=== PATIENT | female | born 1980 | race Caucasian/White ===

== ENCOUNTER → 2020-03-17 11:00 | Outpatient (BNVA) | payer OTHER, SELFPAY | PROVIDERS: PCP Hospitalist; Visit Provider Obstetrics & Gynecology | DX: Z76.89 Persons encountering health services in other specified circumstances (principal) ==

== ENCOUNTER → 2020-04-05 08:53 | Outpatient (BNVA) | payer OTHER, SELFPAY | PROVIDERS: PCP Hospitalist; Visit Provider Surgery | DX: Z76.89 Persons encountering health services in other specified circumstances (principal) ==

== ENCOUNTER → 2020-05-24 13:07 | Outpatient (BNVA) | payer OTHER, SELFPAY | PROVIDERS: PCP Hospitalist; Visit Provider Surgery ==

== ENCOUNTER 2020-07-14 10:16 | Outpatient (REF) | payer OTHER, SELFPAY ==
--- NOTE | ~2020-07-14 | MR_ITS ---
EXAMINATION: MR BREAST WITHOUT AND WITH CONTRAST, BILATERAL CLINICAL INFORMATION: 40-year-old for high risk screening family history history of carrier of genetic disease. COMPARISON: None. TECHNIQUE: Imaging was performed with a dedicated breast coil. Prior to the administration of contrast, bilateral axial T1 and bilateral axial T2 weighted sequences were obtained. After the uneventful administration of?7 mL of Gadavist, dynamic contrast-enhanced VIBRANT series through the breasts in the axial plane were performed. Subtracted images were performed and reviewed. A delayed sagittal sequence through both breasts was acquired. Additionally, CAD post-processing, including maximum intensity projections, 3-D reconstructions and kinetic analysis, were performed an independent workstation and reviewed by the interpreting radiologist is a portion of this exam. FINDINGS: The patient's fibroglandular tissue demonstrates moderate background enhancement. There is moderate background enhancement. LEFT BREAST: There are multiple enhancing foci throughout the breast parenchyma demonstrating subthreshold-type kinetics. There are no areas of mass or non-mass enhancement suspicious of malignancy and no secondary signs of malignancy such as nipple retraction or ductal enhancement. Multiple oval T2 bright masses are noted throughout the breast most likely representing cysts. There are no additional findings on kinetic curve analysis. RIGHT BREAST: Similar to the contralateral breast, there are scattered enhancing foci demonstrating subthreshold-type kinetics. There is an oval T2 bright mass in the 3-4 o'clock position, 6.5 cm from the nipple, measuring 1.4 x 0.8 cm. This has T2 dark septation which demonstrates plateau and progressive-type kinetics. This may represent a complex cystic and solid mass (sequence #5, image 25/36). There are no other areas of mass or non-mass enhancement suspicious of malignancy, and no secondary signs of malignancy. There are no additional findings on kinetic curve analysis. There is no suspicious internal mammary chain or axillary adenopathy. Limited views of the chest and abdomen are unremarkable. MR/MR breast BI wo/w con IMPRESSION: 1. Right breast with complex T2 bright mass 3-4 o'clock position, 6.5 cm from the nipple, measuring 1.4 x 0.8 cm. 2. Moderate background enhancement with enhancing foci. No suspicious findings. ASSESSMENT: LEFT BREAST: BI-RADS 2, benign. RIGHT BREAST: BI-RADS 4, suspicious. RECOMMENDATIONS: Focused ultrasound of the right breast to further characterize the mass in the 3-4 o'clock position, 6.5 cm from the nipple.
== END 2020-07-14 10:17 | disposition home or self-care (01) ==
LOC: HO.MRI 10:16
PROVIDERS: Visit Provider Surgery
DX: Z84.81 Family history of carrier of genetic disease (principal)
CPT/HCPCS: 77049; A9585

== ENCOUNTER 2020-08-01 10:52 | Outpatient (REF) | payer OTHER, SELFPAY ==
--- NOTE | ~2020-08-01 | MM_ITS ---
EXAMINATION: MM DIAGNOSTIC DIGITAL BREAST TOMOSYNTHESIS, BILATERAL US DIAGNOSTIC ULTRASOUND BREAST, RIGHT CLINICAL INFORMATION: 40-year-old with family history of carrier of genetic disease (Z84.81). Tyrer-Cuzick lifetime risk score is 24%. Recent high risk screening breast MRI notes possible complex cystic and solid mass posterior 8:00 right breast for targeted imaging. No prior mammography or breast ultrasound. COMPARISON: High risk screening breast MRI for 12/25/2020. Findings discussed with interpreting radiologist. TECHNIQUE: Digital breast tomosynthesis is performed in both the craniocaudal and mediolateral oblique views along with computer-aided detection (CAD). Synthesized 2D images are generated from the tomosynthesis. Additional exaggerated left CC view is provided. Ultrasound right breast is targeted to the outer quadrants. Grayscale imaging and color Doppler are performed without and with harmonics. FINDINGS: There are scattered areas of fibroglandular density (ACR BI-RADS breast composition Category b). There is no architectural abnormality. No abnormal calcifications. The bilateral axilla and skin contours are unremarkable. Left breast has circumscribed nodules anterior and mid central medial breast corresponding to cysts on MRI. Right breast has grouped nodularity posterior 8:30 position 6 cm from nipple, overall size 1.7 x 1.6 cm. There is interspersed fatty tissue composition. No architectural abnormality or associated calcification. This corresponds to the finding on recent MRI. Ultrasound right breast demonstrates grouped hypoechoic avascular nodularity 8:00 position 6 cm from nipple with overall size 1.6 cm across. The largest nodule is circumscribed 0.6 cm with low-level internal echoes and increased through transmission of sound. There is interspersed fibroglandular tissue, likely responsible for the enhancement on recent MR. There is no solid mass or architectural abnormality. Results are discussed with the patient at time of visit. The finding posterior outer right breast on recent MR appears to represent grouped mildly complicated avascular cysts with interspersed fibroglandular tissue. Management plan is for diagnostic right mammography and targeted right breast ultrasound in 6 months. Patient should continue with annual bilateral mammography and considered follow-up MR in 6-12 months. MM/MM tomosynthesis diagnostic BI IMPRESSION: 1. Right: Grouped mildly complicated cysts posterior outer breast corresponding to finding on recent breast MR. 2. Left: A few small cysts corresponding to recent MR. ASSESSMENT: BI-RADS 3: Probably Benign RECOMMENDATION: 1. Diagnostic right mammography and right breast ultrasound in 6 months. 2. Consider follow up breast MR in 6-12 months. This patient's information was entered into a reminder system with a target due date for their next mammogram.
== END 2020-08-01 10:53 | disposition home or self-care (01) ==
LOC: HO.MAMMO 10:52
PROVIDERS: PCP Hospitalist; Visit Provider Surgery
DX: N63.13 Unspecified lump in the right breast, lower outer quadrant (principal); Z84.81 Family history of carrier of genetic disease
CPT/HCPCS: 76642; 77062; 77066

== ENCOUNTER 2020-08-11 09:53 | Outpatient (REF) | payer OTHER, SELFPAY ==
--- NOTE | ~2020-08-11 | MM_ITS ---
EXAMINATION: ULTRASOUND GUIDED CORE BIOPSY BREAST, RIGHT POST PROCEDURE DIGITAL MAMMOGRAM, RIGHT CLINICAL INFORMATION: Heterogeneous lesion posterior outer right breast on high risk screening MRI. COMPARISON: High risk screening MRI 07/14/2020, diagnostic digital breast tomosynthesis and targeted right breast ultrasound 08/01/2020. FINDINGS: Proper informed consent is obtained from the patient after discussion of the procedure, potential risks and complications, and alternatives. Patient was given an opportunity for questions. The patient appeared to understand. The patient consented to the procedure and signed the consent form. GUIDANCE: Ultrasound-guided; aseptic technique. LESION: Grouped nodularity posterior 8:30 o'clock position under 2 cm with interspersed fatty stromal tissue. Diagnostic considerations include focal fibrocystic changes, focal fibrosis, PASH, other. APPROACH: Lateral medial. ANESTHESIA: 17 mL 1% lidocaine. DERMATOTOMY: Single skin jostin dermatotomy performed. NEEDLE: 14-gauge Achieve core biopsy device with 13.5-gauge co-axial guide needle. CORES: 8. CLIP: HydroMARK; shape: open coil. POST PROCEDURE UNILATERAL DIGITAL MAMMOGRAM: The post biopsy mammogram is performed in separate room using separate digital mammography equipment from the biopsy procedure. CC and ML views are obtained. There are scattered areas of fibroglandular density (breast composition category: b). The clip marker is in position and corresponds to the mammographic lesion. No gross hematoma. The patient tolerated the procedure well. No immediate complications. Home instructions reviewed with the patient. Final pathology results are pending. MM/MM diagnostic mammo unilat RT IMPRESSION: 1. Status post ultrasound-guided core biopsy right breast. 2. Clip placed: HydroMARK; shape: open coil. 3. Pathology pending. An addendum report will be issued.
== END 2020-08-11 09:54 | disposition home or self-care (01) ==
LOC: HO.MAMMO 09:53
PROVIDERS: PCP Hospitalist; Visit Provider Surgery
DX: N63.13 Unspecified lump in the right breast, lower outer quadrant (principal); Z84.81 Family history of carrier of genetic disease
CPT/HCPCS: 19083; 77065; 88305

== ENCOUNTER → 2021-01-05 09:27 | Outpatient (BNVA) | payer BC, SELFPAY | PROVIDERS: PCP Hospitalist; Visit Provider Surgery ==

== ENCOUNTER 2021-01-26 12:12 | Outpatient (REF) | payer BC, SELFPAY ==
--- NOTE | ~2021-01-26 | MM_ITS ---
EXAMINATION: MM DIAGNOSTIC DIGITAL BREAST TOMOSYNTHESIS, RIGHT CLINICAL INFORMATION: Short interval six-month follow-up status post benign biopsy right breast (benign breast tissue with florid usual ductal hyperplasia, fibroelastotic stromal and fibrocystic changes). Family history genetic disease (Z84.81). The lifetime risk of breast cancer based on the Tyrer-Cuzick Model is 24%. COMPARISON: MRI breasts 07/14/2020, mammography 08/01/2020 and 08/11/2020. Ultrasound right breast 08/01/2020, ultrasound-guided core biopsy right breast 08/11/2020. TECHNIQUE: Digital breast tomosynthesis is performed in both the craniocaudal and mediolateral oblique views along with computer-aided detection (CAD). Synthesized 2D images are generated from the tomosynthesis. Additional exaggerated spot CC and spot MLO views are obtained. FINDINGS: There are scattered areas of fibroglandular density (ACR BI-RADS breast composition Category b). Breast tissue composition borders on heterogeneously dense. There are scattered fibroglandular asymmetries similar to prior studies. No developing density. Biopsy clip marker again noted posterior 9:00 position. No developing density. No significant calcifications. The skin contours are smooth. Results are discussed with the patient at time of visit. MM/MM tomosynthesis diagnostic RT IMPRESSION: No mammographic evidence of malignancy. ASSESSMENT: BI-RADS 2: Benign RECOMMENDATION: 1. Routine annual mammography screening. 2. The lifetime risk of breast cancer based on the Tyrer-Cuzick Model is 24%. Additional annual adjunct screening with breast MRI may be of benefit in women with a risk score of 20% or greater. This patient's information was entered into a reminder system with a target due date for their next mammogram.
== END 2021-01-26 12:13 | disposition home or self-care (01) ==
LOC: HO.MAMMO 12:12
PROVIDERS: PCP Hospitalist; Visit Provider Surgery
DX: N63.13 Unspecified lump in the right breast, lower outer quadrant (principal); Z84.81 Family history of carrier of genetic disease
CPT/HCPCS: 77061; 77065

== ENCOUNTER 2021-04-18 10:38 | Outpatient (REF) | payer BC, SELFPAY ==
[2021-04-21 16:31] LABS: HPV mRNA E6/E7 rflx Not Detected (Not Detected)
== END 2021-04-18 10:39 | disposition home or self-care (01) ==
LOC: HO.LAB 10:38
PROVIDERS: PCP Hospitalist; Visit Provider Advanced Practice Midwife
DX: Z01.419 Encounter for gynecological examination (general) (routine) without abnormal findings (principal)
CPT/HCPCS: 87624; 88142

== ENCOUNTER 2021-06-12 16:18 | Outpatient (REF) | payer BC, SELFPAY ==
[2021-06-12 18:15] LABS: Appearance Urine CLEAR; Color Urine STRAW; Glucose Urine UA NEG (NEG); Leukocyte Esterase Urine TRACE (NEG); Nitrite Urine NEG (NEG); PH 6.5 (5.0-8.0); Specific Gravity - Urine <= 1.005 (1.005-1.025); UACC Culture Trigger YES; Urine Blood NEG (NEG); Urine Ketones NEG (NEG); Urine Protein NEG (NEG-TRACE)
[2021-06-12 18:26] LABS: Bacteria Urine 3+ /LPF; RBC Urine 0 /HPF (0); Squamous Epithelial Cell Urine 3+ /LPF
== END 2021-06-12 16:19 | disposition home or self-care (01) ==
LOC: HO.LAB 16:18
PROVIDERS: Visit Provider Advanced Practice Midwife
DX: R30.0 Dysuria (principal)
CPT/HCPCS: 81001; 87086

== ENCOUNTER → 2021-08-23 09:12 | Outpatient (BNVA) | payer BC, SELFPAY | PROVIDERS: PCP Internal Medicine; Visit Provider Surgery | DX: Z13.89 Encounter for screening for other disorder (principal) ==

== ENCOUNTER 2021-09-19 15:52 | Outpatient (REF) | payer BC, SELFPAY ==
--- NOTE | ~2021-09-19 | MM_ITS ---
EXAMINATION: MM SCREENING DIGITAL BREAST TOMOSYNTHESIS, BILATERAL CLINICAL INFORMATION: Screening. Family history genetic disease (Z84.81). Benign right breast biopsy 08/11/2020 (benign breast tissue with florid usual ductal hyperplasia, fibroelastotic stromal and fibrocystic changes). The lifetime risk of breast cancer based on the Tyrer-Cuzick Model is 19%. COMPARISON: Mammography: 01/26/2021, 08/11/2020, 08/01/2020; ultrasound core biopsy 08/11/2020, ultrasound right breast 08/01/2020, MR bilateral breasts 07/14/2020. TECHNIQUE: Digital breast tomosynthesis is performed in both the craniocaudal and mediolateral oblique views along with computer-aided detection (CAD). Synthesized 2D images are generated from the tomosynthesis. FINDINGS: The breasts are heterogeneously dense, which may obscure small masses (ACR BI-RADS breast composition Category c). Right breast has biopsy clip marker posterior 9:00 position right breast. Parenchymal pattern is similar to prior study. No developing density or interval architectural abnormality or abnormal calcifications. Left breast has chronic smooth nodularity consistent with cysts on MRI subareolar and central inner breast. The central medial cyst is slightly larger, measuring 1.4 x 1.3 cm, previously 1.0 x 0.8 cm. Subareolar cyst is borderline decreased. No interval developing density or architectural abnormality or abnormal calcifications. The bilateral axilla and skin contours are unremarkable. No significant changes. MM/MM tomosynthesis screening BI IMPRESSION: -No mammographic evidence of malignancy. ASSESSMENT: BI-RADS 2: Benign RECOMMENDATION: 1. Routine annual mammography screening. 2. Additional adjunct breast MRI as clinical risk factors warrant. This patient's information was entered into a reminder system with a target due date for their next mammogram.
== END 2021-09-19 15:53 | disposition home or self-care (01) ==
LOC: HO.MAMMO 15:52
PROVIDERS: Visit Provider Surgery
DX: Z12.31 Encounter for screening mammogram for malignant neoplasm of breast (principal)
CPT/HCPCS: 77063; 77067

== ENCOUNTER → 2022-04-19 09:05 | Outpatient (BNVA) | payer OTHER, SELFPAY | PROVIDERS: PCP Internal Medicine; Visit Provider Surgery | DX: Z91.89 Other specified personal risk factors, not elsewhere classified (principal); Z84.81 Family history of carrier of genetic disease ==

== ENCOUNTER 2022-06-10 09:26 | Outpatient (REF) | payer OTHER, SELFPAY ==
--- NOTE | ~2022-06-10 | MR_ITS ---
EXAMINATION: MR BREAST WITHOUT AND WITH CONTRAST, BILATERAL CLINICAL INFORMATION: High risk screening. Family history of genetic disease. Paternal grandmother with history of breast cancer. Previous benign right breast biopsy. COMPARISON: Portions of previous MRI 07/14/2020. Mammography (nondiagnostic monitor review): 09/19/2021. TECHNIQUE: A 1.5 T system and a dedicated breast coil. T1-weighted sequences without fat-saturation were obtained prior to the administration of contrast. Fat-saturated T1 and T2-weighted sequences were also acquired. The patient received 8 mL of IV gadolinium-based contrast, Gadavist. Multiple sequential dynamic T1-weighted sequences were obtained through both breasts with fat-saturation. Subtracted images were reviewed. CAD postprocessing with 3-D reconstructions, maximum intensity projections and kinetic analysis was performed by the interpreting radiologist at an independent workstation and reviewed as a portion of this exam. FINDINGS: Amount of Remaining Fibroglandular Signal: There is heterogeneous fibroglandular tissue, which may obscure small masses(ACR BI-RADS breast composition category C).* Background Parenchymal Enhancement: Marked Symmetry of Background Enhancement: Symmetric RIGHT BREAST: There are no suspicious findings. Masses: There is a 0.5 cm low level enhancing focus in the 11 o'clock position 2 cm from the right nipple (series 7, image 56). This appears unchanged when compared to 07/14/2020 (series 102, image 66). There is no suspicious abnormality in this area on mammography. No new suspicious right breast finding. Non-mass Enhancement: Extensive heterogeneous non-mass background enhancement could obscure a significant abnormality and limits the exam. Focus: Multiple nonspecific enhancing foci. Non-enhancing Findings: Associated findings: There are no suspicious associated findings. There is no suspicious finding in the area of susceptibility artifact from previous tissue marker placement in the outer right breast. There are multiple cysts present. Kinetic Curve Assessment: Initial Phase: There are no suspicious areas of color signal. Delayed Phase: There are no areas of washout kinetics. LEFT BREAST: There are no suspicious findings. Masses: There are no suspicious enhancing masses. Non-mass Enhancement: Extensive heterogeneous non-mass background enhancement could obscure a significant abnormality and limits the exam. Focus: Scattered nonspecific enhancing foci. Non-enhancing Findings: Associated Findings: There are no suspicious associated findings. There are multiple cysts present. Kinetic Curve Assessment: Initial Phase: There are no areas of suspicious color signal. Delayed Phase: There are no areas of washout kinetics. The axillary lymph nodes are morphologically normal. No suspicious internal mammary lymph nodes are seen. No suspicious abnormality in the visualized portions of chest or abdomen. MR/MR breast BI wo/w con IMPRESSION: Extensive heterogeneous non-mass background enhancement could obscure a significant abnormality. No convincing evidence of malignancy or suspicious interval change. ASSESSMENT: Right Breast: ACR BI-RADS 2: Benign finding. Left Breast: ACR BI-RADS 2: Benign finding. RECOMMENDATIONS: Continue screening.
== END 2022-06-10 09:27 | disposition home or self-care (01) ==
LOC: HO.MRI 09:26
PROVIDERS: PCP Internal Medicine; Visit Provider Surgery
DX: Z91.89 Other specified personal risk factors, not elsewhere classified (principal); Z84.81 Family history of carrier of genetic disease; Z80.3 Family history of malignant neoplasm of breast
CPT/HCPCS: 77049; A9585

== ENCOUNTER → 2022-08-14 08:47 | Outpatient (BNVA) | payer OTHER, SELFPAY | PROVIDERS: PCP Internal Medicine; Visit Provider Advanced Practice Midwife ==

== ENCOUNTER 2022-10-18 09:15 | Outpatient (AMB) | payer OTHER, SELFPAY ==
--- NOTE | 2022-10-18 09:18 | A.OFFVIS_ITS ---
Intake Vital Signs 10/18/22 09:24 Height 5 ft 4 in Weight 173 lb 4 oz BMI 29.7 BP 123/69 Blood Pressure Location Lt brachial Position Sitting Pulse 62 Intake Visit Reasons: 6 month breast exam Intake Note: Patient is seen in office for 6 month follow up visit, breast exam. 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 She has a family history of BRCA2 mutation in her father. He was diagnosed with metastatic prostate cancer and subsequent underwent radiation therapy to the spine. He also has a history of metastatic melanoma. Paternal grandmother was diagnosed with breast cancer the age of 65 and maternal grandmother was treated for lung cancer. Patient underwent genetic testing which was negative for BRCA mutation however 2 variants of unknown significance were identified. Her Tyrer-zick remaining lifetime risk of breast cancer was calculated at 34.8% placing her high risk for breast cancer. She was started on the high risk protocol including twice yearly clinical breast examinations, yearly mammogram alternating in 6 months with yearly breast MRIs. Her last mammogram performed on 09/19/2021 revealed no suspicious findings (BI-RADS 2). Last breast MRI performed on 06/10/2022 revealed extensive heterogeneous non mass background enhancement which could obscure a significant abnormality. No convincing evidence of malignancy or suspicious interval change (BI-RADS 2 bilaterally). She denies any new breast symptoms. She is now due for her yearly mammogram. [facility] Medical History BRCA negative Surgical History History of loop electrical excision procedure (LEEP) History of tonsillectomy Family History Father BRCA gene mutation positive in male Prostate cancer Melanoma Mother TTP (thrombotic thrombocytopenic purpura) Stroke Paternal Grandmother Breast cancer Maternal Uncle Lung cancer Social History Alcohol intake: current Alcohol intake frequency: a few times a month Current occupational status: employed Current occupation: [employer] Sexual orientation: Straight/Heterosexual Gender identity: Female Female Reproductive History Menstrual Age of Menarche: 11 Review of Systems Const All systems reviewed & are unremarkable except as noted in HPI and below Denies chills, Denies fever(s), Denies headache(s) and Denies poor appetite ENT Denies dizziness and Denies headache(s) Card Denies chest pain, Denies rapid heart rate, Denies palpitations and Denies slow heart rate Resp Denies chest congestion, Denies cough, Denies pain on inspiration and Denies wheezing GI Denies abdominal pain, Denies bloating, Denies change in stool character, Denies constipation, Denies diarrhea, Denies nausea, Denies vomiting and Denies hematemesis Musc Denies back pain, Denies arthralgias, Denies joint swelling and Denies numbness Skin/Breast Denies change in pigmentation, Denies erythema and Denies rash Neuro Denies dizziness, Denies headache(s) and Denies numbness Psych Denies anxiety and Denies depression Endo Denies palpitations Kaz/Lymph Denies easy bleeding, Denies easy bruising and Denies lymphadenopathy Aller/Immun Denies wheezing Physical Exam Const General: no acute distress and well developed Nutritional Appearance: well nourished Orientation/consciousness: patient oriented x3 Limitations: no limitations HEENT Head: Yes normocephalic and Yes atraumatic Eyes Sclerae: sclerae normal EOM: EOMs intact bilaterally Neck Neck: Yes no lymphadenopathy Chest Other: Left breast: No skin change, no nipple retraction, no nipple discharge, no palpable mass, no enlarged lymph nodes. Right breast: No skin change, no nipple retraction, no nipple discharge, no palpable mass, no enlarged lymph nodes Resp Effort & Inspection: normal respiratory effort and no cough Skin Other: Warm and dry, no rash General skin exam: no rashes or lesions noted Neuro General: patient oriented x3 Extrem General: Yes no clubbing, cyanosis or edema Assessment & Plan Assessment & Plan (1) At high risk for breast cancer: Code(s): Z91.89 - Other specified personal risk factors, not elsewhere classified (2) Family history of BRCA gene mutation: Code(s): Z84.81 - Family history of carrier of genetic disease Plan: 42-year-old female patient with strong family history of breast cancer found to have an elevated Tyrer-zi risk a 34.8% lifetime remaining risk of breast cancer. She underwent an ultrasound-guided core biopsy which revealed benign breast tissue. She underwent screening mammogram on 09/19/2021 which revealed no mammographic evidence of malignancy (BI-RADS 2). Breast MRI of 06/10/2022 revealed no convincing evidence of malignancy in either breast (BI-RADS 2). She is now due for her yearly mammogram. Examination today revealed no suspicious findings in either breast. She should follow up in 6 months for routine breast examination, sooner p.r.n.. Orders: Orders MM screening mammo BI Today Z84.81 - Family history of carrier of genetic disease, Z91.89 - Other specified personal risk factors, not elsewhere cla ssified Coding Level of Care Code Est Pt Level 3 (66563) Diagnoses At high risk for breast cancer Z91.89 Family history of BRCA gene mutation Z84.81
[2022-10-18 09:24] VITALS: BP 123/69; PULSE 62; BMI 29.7
== END 2022-10-18 09:38 | disposition home or self-care (01) ==
PROVIDERS: PCP Internal Medicine; Visit Provider Surgery
DX: Z15.01 Genetic susceptibility to malignant neoplasm of breast (principal); Z84.81 Family history of carrier of genetic disease
CPT/HCPCS: 99213

== ENCOUNTER → 2022-10-18 09:15 | Outpatient (BNVA) | payer OTHER, SELFPAY | PROVIDERS: PCP Internal Medicine; Visit Provider Surgery | DX: Z91.89 Other specified personal risk factors, not elsewhere classified (principal); Z84.81 Family history of carrier of genetic disease ==

== ENCOUNTER 2022-12-16 09:37 | Outpatient (REF) | payer OTHER, SELFPAY ==
--- NOTE | ~2022-12-16 | MM_ITS ---
EXAMINATION: MM SCREENING DIGITAL BREAST TOMOSYNTHESIS, BILATERAL CLINICAL INFORMATION: Screening. Asymptomatic. The patient had a recent breast MRI on 06/10/2022 which showed no focal findings. This was performed for high risk screening. COMPARISON: Mammography: This study is compared with prior exams dating back to 2020. TECHNIQUE: Digital breast tomosynthesis is performed in both the craniocaudal and mediolateral oblique views along with computer-aided detection (CAD). Synthesized 2D images are generated from the tomosynthesis. FINDINGS: There are scattered areas of fibroglandular density (ACR BI-RADS breast composition Category b). There are no significant masses, abnormal calcifications, or other abnormalities. There is a tissue marker in the lateral aspect of the right breast from prior benign percutaneous biopsy. There have been no significant interval changes with the prior studies. MM/MM tomosynthesis screening BI IMPRESSION: No mammographic evidence of malignancy. ASSESSMENT: BI-RADS BI-RADS 2 - Benign Findings RECOMMENDATION: Routine annual mammography screening. 1 year F/U This examination should not preclude the clinical evaluation of a suspicious palpable abnormality. This patient's information was entered into a reminder system with a target due date for their next mammogram.
== END 2022-12-16 09:38 | disposition home or self-care (01) ==
LOC: HO.MAMMO 09:37
PROVIDERS: PCP Internal Medicine; Referring Provider Advanced Practice Midwife; Visit Provider Surgery
DX: Z12.31 Encounter for screening mammogram for malignant neoplasm of breast (principal)
CPT/HCPCS: 77063; 77067

== ENCOUNTER → 2022-12-16 09:45 | Outpatient (BNV) | payer OTHER, SELFPAY | PROVIDERS: PCP Internal Medicine; Referring Provider Advanced Practice Midwife; Visit Provider Radiology Diagnostic Radiology | DX: Z12.31 Encounter for screening mammogram for malignant neoplasm of breast (principal) | CPT/HCPCS: 77063; 77067 ==

== ENCOUNTER 2022-12-31 13:29 | Outpatient (AMB) | payer OTHER, SELFPAY ==
[2022-12-31 13:31] VITALS: BP 104/64; BMI 29.7
--- NOTE | 2022-12-31 13:31 | A.OFFVIS_ITS ---
Intake Vital Signs 12/31/22 13:31 Height 5 ft 4 in Weight 173 lb BMI 29.7 BP 104/64 Intake Visit Reasons: control consult Intake Note: The patient agreed to use of a durable medical equipment technician during this encounter. Scribed for EARLE Ahn by Zoila Schmidt durable medical equipment technician, on 12/31/2022 at 1:52 pm EST. Allergies codeine Allergy (Intermediate, Verified 12/31/22 13:33) hives, flushing Sulfa (Sulfonamide Antibiotics) [Sulfa(Sulfonamide Antibiotics)] Allergy (Unknown, Verified 12/31/22 13:33) HIVES TO SULFA DRUGS droperidol [From Inapsine] Adverse Reaction (Unknown, Verified 12/31/22 13:33) AGITATION Is last menstrual period known: Yes Last menstrual period: 12/29/22 HPI HPI Comments History of Present Illness Details She is here for a BC consult due to heavy menses. Reports she is on her menses today and hx of one episode of closely spaced menses which was a couple of weeks apart in November. She is interested in OCP and not IUD. She denies any contraindications to control such as: migraines with aura, history of DVT or pulmonary emboli, high blood pressure, liver disease, thrombolic disorders, Lupus, +KYLER, or smoking. Pelvic exam offered; she defers due to menses. [facility] Medical History Abnormal uterine bleeding (AUB) Heavy menstrual bleeding BRCA negative Surgical History History of loop electrical excision procedure (LEEP) History of tonsillectomy Family History Father BRCA gene mutation positive in male Prostate cancer Melanoma Mother TTP (thrombotic thrombocytopenic purpura) Stroke Paternal Grandmother Breast cancer Maternal Uncle Lung cancer Social History Alcohol intake: current Alcohol intake frequency: a few times a month Patient Tobacco Use Status: Never used Tobacco Current occupational status: employed Current occupation: [email or web address] Sexual orientation: Straight/Heterosexual Gender identity: Female Female Reproductive History Menstrual Age of Menarche: 11 Duration of menses: 6-7 days Date of last menstrual period: 12/29/22 control method: none Physical Exam Vital Signs: Last Vital Signs BP 104/64 12/31/22 13:31 BMI result Body Mass Index 29.7 Const General: cooperative, healthy appearing, comfortable, no acute distress, well developed, alert and awake Assessment & Plan Assessment & Plan (1) Heavy menstrual bleeding: Code(s): N92.0 - Excessive and frequent menstruation with regular cycle Plan: Discussed: US scheduled lab work ordered. The EMB purpose was explained to rule out atypia, hyperplasia and uterine cancer. Reviewed procedure and instructed to take ibuprofen with food 1 hour prior to procedure. RTO to review results and control counseling. All of her questions and concerns were addressed to the best of my ability and shared decision making. She is agreeable to plan of care. (2) Abnormal uterine bleeding (AUB): Code(s): N93.9 - Abnormal uterine and vaginal bleeding, unspecified Orders: Orders Thyroid Stimulating Hormone Today N92.1 - Excessive and frequent menstruation with irregular cycle Complete Blood Count no Diff Today N92.0 - Excessive and frequent menstruation with regular cycle, N93.9 - Abnormal uterine and vaginal bleeding, unspecified US OB pelvic and transvaginal Today N92.0 - Excessive and frequent menstruation with regular cycle Coding Level of Care Code Est Pt Level 3 (81604) Diagnoses Heavy menstrual bleeding N92.0 Abnormal uterine bleeding (AUB) N93.9
== END 2022-12-31 15:07 | disposition home or self-care (01) ==
PROVIDERS: PCP Internal Medicine; Visit Provider Advanced Practice Midwife
DX: N92.0 Excessive and frequent menstruation with regular cycle (principal); N93.9 Abnormal uterine and vaginal bleeding, unspecified
CPT/HCPCS: 99213

== ENCOUNTER → 2022-12-31 13:29 | Outpatient (BNVA) | payer OTHER, SELFPAY | PROVIDERS: PCP Internal Medicine; Visit Provider Advanced Practice Midwife ==

== ENCOUNTER 2023-01-02 13:23 | Outpatient (REF) | payer OTHER, SELFPAY ==
--- NOTE | ~2023-01-02 | US_ITS ---
EXAMINATION: US PELVIS COMPLETE CLINICAL INFORMATION: Excessive bleeding COMPARISON: Pelvic ultrasound 01/30/2012 TECHNIQUE: Transabdominal and transvaginal imaging was performed. FINDINGS: The uterus is of normal size and echogenicity measuring 7.5 x 3.5 x 5.0 cm. A regular homogeneous endometrium is identified measuring 0.2 cm with trace fluid within the endometrial canal. Nabothian cysts in the cervix. A 0.6 x 0.4 x 0.6 cm myoma in the left body of uterus new from prior with a small less than 50% submucosal component. A 1.2 cm intramural myoma in the left body of the uterus, previously 0.6 cm and a 0.8 cm intramural myoma in the left body of the uterus previously 0.4 cm are increased from prior. Both ovaries are of normal size and echogenicity. The right measures 2.0 x 1.5 x 1.5 cm. The left measures 2.7 x 1.3 x 3.0 cm. There is no pelvic free fluid. US/US pelvic and transvaginal IMPRESSION: 1. New and increased size of small uterine myomas measuring up to 1.2 cm with one subcentimeter myoma demonstrating a small submucosal component. 2. Trace fluid within the endometrial canal. 3. Unremarkable sonographic appearance of the ovaries.
== END 2023-01-02 13:24 | disposition home or self-care (01) ==
LOC: HO.US 13:23
PROVIDERS: PCP Internal Medicine; Visit Provider Advanced Practice Midwife
DX: N92.0 Excessive and frequent menstruation with regular cycle (principal)
CPT/HCPCS: 76830; 76856

== ENCOUNTER 2023-04-10 15:17 | Outpatient (REF) | payer OTHER, SELFPAY | END 2023-04-10 15:18 | disposition home or self-care (01) | LOC: HO.LAB 15:17 | PROVIDERS: Visit Provider Advanced Practice Midwife | DX: N92.1 Excessive and frequent menstruation with irregular cycle (principal); N93.9 Abnormal uterine and vaginal bleeding, unspecified; N92.0 Excessive and frequent menstruation with regular cycle | CPT/HCPCS: 36415; 84443; 85027 ==

== ENCOUNTER → 2023-05-02 09:05 | Outpatient (BNVA) | payer OTHER, SELFPAY | PROVIDERS: PCP Internal Medicine; Visit Provider Surgery | DX: Z84.81 Family history of carrier of genetic disease (principal); Z91.89 Other specified personal risk factors, not elsewhere classified ==

== ENCOUNTER 2023-05-02 09:07 | Outpatient (AMB) | payer OTHER, SELFPAY ==
--- NOTE | 2023-05-02 09:14 | A.OFFVIS_ITS ---
Intake Vital Signs 05/02/23 09:21 Height 5 ft 4 in Weight 174 lb 2 oz BMI 29.9 BP 119/72 Blood Pressure Location Lt brachial Position Sitting Intake Visit Reasons: 6 month breast exam Intake Note: Patient is seen in office for 6 month follow up visit, breast exam. 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: No Doctor Naturopathic: Doctor Naturopathic Present Accompanied by: Self / Same As Patient Allergies codeine Allergy (Intermediate, Verified 05/02/23 09:20) hives, flushing Sulfa (Sulfonamide Antibiotics) [Sulfa(Sulfonamide Antibiotics)] Allergy (Unknown, Verified 05/02/23 09:20) HIVES TO SULFA DRUGS droperidol [From Inapsine] Adverse Reaction (Unknown, Verified 05/02/23 09:20) AGITATION Medication List - Last Reconciled 05/02/23 by Silvano Overton MD No Known Home Meds HPI HPI Comments History of Present Illness Details 43-year-old female patient returning for a high risk breast examination. She has a family history of BRCA2 mutation in her father. He was diagnosed with metastatic prostate cancer and subsequent underwent radiation therapy to the spine. He also has a history of metastatic melanoma. Paternal grandmother was diagnosed with breast cancer the age of 65 and maternal grandmother was treated for lung cancer. Patient underwent genetic testing which was negative for BRCA mutation however 2 variants of unknown significance were identified. Her Tyrer-zick remaining lifetime risk of breast cancer was calculated at 34.8% placing her high risk for breast cancer. She was started on the high risk protocol including twice yearly clinical breast examinations, yearly mammogram alternating in 6 months with yearly breast MRIs. Her last breast MRI performed on 06/10/2022 revealed extensive heterogeneous non mass background enhancement which could obscure a significant abnormality. No convincing evidence of malignancy or suspicious interval change (BI-RADS 2 bilaterally). Mammogram performed on 12/16/2022 revealed no mammographic evidence of malignancy (BI-RADS 2). She denies any new breast symptoms. [facility] Medical History Abnormal uterine bleeding (AUB) Heavy menstrual bleeding BRCA negative Surgical History History of loop electrical excision procedure (LEEP) History of tonsillectomy Family History Father BRCA gene mutation positive in male Prostate cancer Melanoma Mother TTP (thrombotic thrombocytopenic purpura) Stroke Paternal Grandmother Breast cancer Maternal Uncle Lung cancer Social History Alcohol intake: current Alcohol intake frequency: a few times a month Patient Tobacco Use Status: Never used Tobacco Current occupational status: employed Current occupation: [email or web address] Sexual orientation: Straight/Heterosexual Gender identity: Female Female Reproductive History Menstrual Age of Menarche: 11 Review of Systems Const All systems reviewed & are unremarkable except as noted in HPI and below Denies chills, Denies fever(s), Denies headache(s) and Denies poor appetite ENT Denies dizziness and Denies headache(s) Card Denies chest pain, Denies rapid heart rate, Denies palpitations and Denies slow heart rate Resp Denies chest congestion, Denies cough, Denies pain on inspiration and Denies wheezing GI Denies abdominal pain, Denies bloating, Denies change in stool character, Denies constipation, Denies diarrhea, Denies nausea, Denies vomiting and Denies hematem esis Musc Denies back pain, Denies arthralgias, Denies joint swelling and Denies numbness Skin/Breast Denies change in pigmentation, Denies erythema and Denies rash Neuro Denies dizziness, Denies headache(s) and Denies numbness Psych Denies anxiety and Denies depression Endo Denies palpitations Kaz/Lymph Denies easy bleeding, Denies easy bruising and Denies lymphadenopathy Aller/Immun Denies wheezing Physical Exam Vital Signs: Last Vital Signs BP 119/72 05/02/23 09:21 BMI result Body Mass Index 29.9 Const General: no acute distress and well developed Nutritional Appearance: well nourished Orientation/consciousness: patient oriented x3 Limitations: no limitations HEENT Head: Yes normocephalic and Yes atraumatic Eyes Sclerae: sclerae normal EOM: EOMs intact bilaterally Neck Neck: Yes no lymphadenopathy Chest Other: Left breast: No skin change, no nipple retraction, no nipple discharge, no palpable mass, no enlarged lymph nodes. Right breast: No skin change, no nipple retraction, no nipple discharge, no palpable mass, no enlarged lymph nodes Resp Effort & Inspection: normal respiratory effort and no cough Skin Other: Warm and dry, no rash General skin exam: no rashes or lesions noted Neuro General: patient oriented x3 Extrem General: Yes no clubbing, cyanosis or edema Assessment & Plan Assessment & Plan (1) At high risk for breast cancer: Code(s): Z91.89 - Other specified personal risk factors, not elsewhere classified (2) Family history of BRCA gene mutation: Code(s): Z84.81 - Family history of carrier of genetic disease Plan 43-year-old female patient with strong family history of breast cancer found to have an elevated Tyrer-zi risk a 34.8% lifetime remaining risk of breast cancer. She underwent an ultrasound-guided core biopsy which revealed benign breast tissue. Breast MRI of 06/10/2022 revealed no convincing evidence of malignancy in either breast (BI-RADS 2). Mammogram dated 12/16/2022 revealed no mammographic evidence of malignancy (BI-RADS 2). Examination today revealed no suspicious findings in either breast. She should follow up in 6 months for routine breast examination, sooner p.r.n.. Breast MRI has been ordered for June 2023. Orders: Orders MR breast BI wo/w con 06/12/23 Z84.81 - Family history of carrier of genetic disease, Z91.89 - Other specified personal risk factors, not elsewhere classified Coding Level of Care Code Est Pt Level 3 (90091) Diagnoses At high risk for breast cancer Z91.89 Family history of BRCA gene mutation Z84.81
[2023-05-02 09:21] VITALS: BP 119/72; BMI 29.9
== END 2023-05-02 09:37 | disposition home or self-care (01) ==
PROVIDERS: PCP Internal Medicine; Visit Provider Surgery
DX: Z80.3 Family history of malignant neoplasm of breast (principal); Z80.42 Family history of malignant neoplasm of prostate; Z84.81 Family history of carrier of genetic disease; Z91.89 Other specified personal risk factors, not elsewhere classified
CPT/HCPCS: 99213

== ENCOUNTER 2023-08-20 09:07 | Outpatient (AMB) | payer OTHER, SELFPAY ==
--- NOTE | 2023-08-20 09:23 | MHC.OFFVIS ---
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 Business Operations Coordinator Required: No Information Interpreted: non-clinical & clinical Operations Management Trainee: Operations Management Trainee Present (Aidyn) Allergies codeine Allergy (Intermediate, Verified 08/20/23 09:38) hives, flushing Sulfa (Sulfonamide Antibiotics) [Sulfa(Sulfonamide Antibiotics)] Allergy (Unknown, Verified 08/20/23 09:38) HIVES TO SULFA DRUGS droperidol [From Inapsine] Adverse Reaction (Unknown, Verified 08/20/23 09:38) AGITATION Is last menstrual period known: Yes Last menstrual period: 08/17/23 Post menopausal: No HPI Comments Details: She is a premenopausal woman presenting for annual examination. Doing well with no concerns: anxiety increased over the last 6months, concern for perimenopausal changes. She tries to eat healthy and stays active with exercise. Regular menses x heavier 2-3/5-6d, used control for many years. Labs April 2023 hemoglobin 13.1, TSH 1.40. had a vasectomy. Currently is sexually active. She denies vaginal itching and irritation. STI screening offered; she declines. Denies family history of ovarian or colon cancer. FH breast cancer, PGM, father BCRA positive. Pt. is BRCA negative. Last pap smear 2021, negative. Hx. of LEEP in her 20s. Mammogram: 2022. History of fibroid. [facility] Medical History (Updated 08/20/23 @ 10:22 by Eboni Dutta CNM) Heavy menstrual bleeding BRCA negative Surgical History History of loop electrical excision procedure (LEEP) History of tonsillectomy Family History Father BRCA gene mutation positive in male Prostate cancer Melanoma Mother TTP (thrombotic thrombocytopenic purpura) Stroke Paternal Grandmother Breast cancer Maternal Uncle Lung cancer Social History Alcohol intake: current Alcohol intake frequency: a few times a month Patient Tobacco Use Status: Never used Tobacco Current occupational status: employed Current occupation: [employer] Sexual orientation: Straight/Heterosexual Gender identity: Female Female Reproductive History Menstrual Age of Menarche: 11 Duration of menses: 3-5 days Date of last menstrual period: 08/17/23 control method: permanent sterilization Permanent Sterilization: Vasectomy Total pregnancies: 2 Full term: 1 Number of Living Children: 1 Ab induced: 1 Date of last pap smear: 04/19/21 (negative) History of abnormal pap smear: Yes Date of Mammogram: 12/16/22 Review of Systems Const All systems reviewed & are unremarkable except as noted in HPI and below Reports as per HPI Eyes Reports no additional complaints ENT Reports no additional complaints Card Reports no additional complaints Resp Reports no additional complaints GI Reports as per HPI and Reports no additional complaints Reports as per HPI Musc Reports no additional complaints Skin/Breast Reports as per HPI Neuro Reports no additional complaints Psych Reports no additional complaints Endo Reports no additional complaints Kaz/Lymph Reports no additional complaints Aller/Immun Reports no additional complaints Physical Exam Const General: cooperative, healthy appearing, no acute distress, well developed and alert Orientation/consciousness: patient oriented x3 HEENT Head: Yes normal to inspection Eyes General: appearance normal, both eyes and all related structures Neck Neck: Yes normal visual inspection Thyroid: Thyroid normal Chest Chest palpation & inspection: normal inspection of the chest and other (no puckering, dimpling, peau de orange, retraction, discharge, masses) Breast/axilla inspection: normal inspection of the breasts Breast/axilla palpation: normal palpation of the breasts Resp Effort & Inspection: normal respiratory effort GI Inspection: Yes normal to inspection Palpation (GI): Soft to palpation Rectal Exam - Female: deferred General: Yes bladder normal to palpation External Female Exam: normal external appearance and normal appearance of the urethra Speculum Exam - Vagina: normal appearance of the vagina, normal palpation and normal vaginal discharge Speculum Exam - Cervix: normal appearance of the cervix and normal palpation Bimanual exam- vagina & uterus: normal bimanual exam, normal palpation, uterine size normal, bladder normal to palpation, normal palpation and non-tender Bimanual Exam- Adnexa, other: no masses Skin General skin exam: no rashes or lesions noted Rashes: no rashes Neuro General: patient oriented x3 Cognition (Neuro): normal cognition Extrem General: Yes normal to inspection Psych Attitude: cooperative Thought process: Normal thought process present Assessment & Plan Assessment & Plan (1) Encounter for well woman exam with routine gynecological exam: Code(s): Z01.419 - Encounter for gynecological examination (general) (routine) without abnormal findings Category: Medical (2) Heavy menstrual bleeding: Code(s): N92.0 - Excessive and frequent menstruation with regular cycle Category: Medical Qualifiers: Menorrhagia type: with regular cycle Qualified Code(s): N92.0 - Excessive and frequent menstruation with regular cycle (3) Fibroid: Code(s): D21.9 - Benign neoplasm of connective and other soft tissue, unspecified Category: Medical Plan Discussed: Current recommendations for pap smears per ASCCP guidelines. Breast awareness and periodic breast exams. Maintain a healthy lifestyle including a well balanced diet and routine exercise. Dermatology evaluation encouraged patient to call and schedule her skin screening. Speak with PCP regarding fatigue workup to include vitamin-D level. Counseled re: Leiomyoma: common pelvic neoplasm. Differential diagnosis-may include leiomyosarcoma which is a rare uterine sarcoma 3-7/100,000, difficult to distinguish from fibroids on ultrasound from uterine sarcoma's. Unlikely any single test will have a highly positive predictive value. Hysterectomy is not recommended for sole purpose of excluding malignant neoplasm. Report any AUB. Pelvic pressure, bloating, or pain. Order placed plan follow up to discuss. Most likely menstrual changes are related to not being on control, which is heavier than her normal while on control, CBC and TSH are normal. Perimenopausal changes and when to call for bleeding: Bleeding less than 21 days apart, or heavy prolonged bleeding. Mammogram yearly. Patient verbalizes understanding and agrees to the plan of care. She was given opportunity to ask questions and all questions were answered to the best of my ability. RTO in one year for annual agriculture worker examination. This note is constructed using voice recognition software. While every effort has been made to ensure accuracy, paraprofessional aide errors may have been included. Orders: Orders US pelvic and transvaginal 12/29/23 D21.9 - Benign neoplasm of connective and other soft tissue, unspecified Coding Level of Care Code Est Pt Prev Care 40-64y(47569) Diagnoses Encounter for well woman exam with routine gynecological exam Z01.419 Menorrhagia with regular cycle N92.0 Menorrhagia type: with regular cycle Fibroid D21.9
[2023-08-20 09:35] VITALS: BP 104/60; BMI 29.3
== END 2023-08-20 10:17 | disposition home or self-care (01) ==
PROVIDERS: PCP Internal Medicine; Visit Provider Advanced Practice Midwife
DX: Z01.419 Encounter for gynecological examination (general) (routine) without abnormal findings (principal); N92.0 Excessive and frequent menstruation with regular cycle; D21.9 Benign neoplasm of connective and other soft tissue, unspecified
CPT/HCPCS: 99396

== ENCOUNTER 2023-10-10 16:48 | Emergency (ER) | payer OTHER, SELFPAY ==
--- NOTE | ~2023-10-10 | XR_ITS ---
EXAMINATION: XR HAND, RIGHT CLINICAL INFORMATION: Right hand pain COMPARISON: None available. TECHNIQUE: PA, lateral, and oblique views of the right hand. FINDINGS: Acute fracture of the neck of the fifth metacarpal results in mild overriding of the metacarpal head on the shaft and mild apex dorsal angulation at the fracture site. There is approximately 0.1 cm of cortical bone offset at the anterolateral aspect of the fractured metacarpal neck. Joint spaces are well-preserved throughout the hand and wrist. Alignment is normal at metacarpophalangeal and interphalangeal joints. IMPRESSIO Acute, minimally displaced fracture of the distal 5th metacarpal ( boxer's fracture ).
--- NOTE | 2023-10-10 17:13 | ED.GENADULT ---
HPI - General Adult General Chief complaint: Extremity Injury, Upper Stated complaint: R hand trauma Time Seen by Provider: 10/10/23 17:13 Source: patient Mode of arrival: ambulatory Limitations: no limitations History of Present Illness ED Provider: Jose DURAN HPI narrative: 43-year-old female with history of fibroids, presenting to the emergency department complaints of right hand pain x2 days. Patient reports 2 days ago she punched a door resulting in right hand pain and swelling since then has been having pain, swelling and bruising worse with movement better at rest. No numbness or tingling. Patient works using her right hand therefore she is concerned and decided to be seen today. No previous injuries to this right hand. Related Data Home Medications ?Medication ?Instructions ?Recorded ?Confirmed etxagitsvzva-Pg-gkvj-minerals 18 tab PO 08/20/23 mg-0.4 mg tablet Previous Rx's ?Medication ?Instructions ?Recorded naproxen 500 mg tablet 500 mg PO BID #14 tabs 10/10/23 Allergies Allergy/AdvReac Type Severity Reaction Status Date / Time codeine Allergy Intermediate hives, Verified 10/10/23 18:27 flushing Sulfa (Sulfonamide Allergy Unknown HIVES TO Verified 10/10/23 18:27 Antibiotics) SULFA DRUGS [Sulfa(Sulfonamide Antibiotics)] droperidol [From Inapsine] AdvReac Unknown AGITATION Verified 10/10/23 18:27 Review of Systems Review of Systems: Yes all other systems are reviewed and are negative PMFSH Past Medical History Attestation statement: The following information was validated with the patient. Source: old records reviewed and nursing notes reviewed Medical History Heavy menstrual bleeding BRCA negative Surgical History History of loop electrical excision procedure (LEEP) History of tonsillectomy Family History Family History Father BRCA gene mutation positive in male Prostate cancer Melanoma Mother TTP (thrombotic thrombocytopenic purpura) Stroke Paternal Grandmother Breast cancer Maternal Uncle Lung cancer Social History Social History Alcohol intake: current Alcohol intake frequency: a few times a month Patient Tobacco Use Status: Never used Tobacco Advance Directives: No Advance Directives Information Provided: No Do you have a plan to hurt others: No Plan Current occupational status: employed Current occupation: [employer] Sexual orientation: Straight/Heterosexual Gender identity: Female Physical Exam ED Vital Signs: Vital Signs - 24 hr 10/10/23 18:23 10/10/23 18:35 Temperature 97.7 F 97.7 F Pulse Rate 71 71 Respiratory Rate 17 17 Blood Pressure 134/78 134/78 Pulse Oximetry 97 97 Oxygen Delivery Method Room Air Room Air BMI result Body Mass Index 29.6 vss Appearance: Alert.? Oriented X3.? No acute cardiopulmonary distress distress.? Head: Normocephalic, atraumatic, no step-offs or deformities Neck: Normal inspection.? Neck supple.? CVS: Pulses normal.? Respiratory: No respiratory distress.? Abdomen: Soft and nontender.? Skin: ? Normal skin color. Extremities: 5/5 strength to bilateral upper and lower extremities + right hand swelling noted to higgins and dorsal aspect of hand overlying 4th and 5th metacarpals w/ overlying swelling and ttp overlying. Normal distal sensation. Cap refil < 2 seconds equal and b/l. Neuro: Oriented X 3.? No motor deficit.? No sensory deficit. Course Reevaluation(s) Reevaluation #1: X-ray of hand with acute minimally displaced fracture of the distal 5th metacarpal. Patient will get an ulnar gutter splint. Educated patient on diagnosis and treatment plan, answered all question, patient verbalizes understanding. At this time patient will be discharged home, advised to return with new or worsening symptoms. Educated on worrisome signs and symptoms and when to return. At this time I feel comfortable discharge home. Time: 18:21 Reevaluation #2: Patient is currently at work, she will continue her work shift and return after work for a splint. Time: 18:38 Medical Decision Making Medical Decision Making MDM Narrative: 43 year old female presents w/ right hand pain sp punching a door last night PE 5/5 strength to bilateral upper and lower extremities + right hand swelling noted to higgins and dorsal aspect of hand overlying 4th and 5th metacarpals w/ overlying swelling and ttp overlying. Normal distal sensation. Cap refil < 2 seconds equal and b/l. Hx and pe concerning for boxers fx vs sprain or strain vs contusion. Unlikley NV compromise, acute threat to limb. Plan- xray Differential Diagnosis Differential Diagnoses: The differential diagnosis associated with the presentation includes Hx and pe concerning for boxers fx vs sprain or strain vs contusion. Unlikley NV compromise, acute threat to limb. Admission/Observation Consideration of admission/observation: Escalation of care including admission/observation considered No indication Independent Interpretation I performed an independent interpretation of an: Plain X-Ray Radiology Impression Discussion of test interpretation with radiology: I have reviewed the radiologist's reading. External Record Review External record reviewed: Office record, Outpatient record, Prior outpatient labs and Prior outpatient radiology Discharge Plan Discharge Clinical Impression: Boxer's fracture, Hand pain, right Patient Disposition: Home, Self-Care Instructions: Arthralgia (ED), Boxer Fracture (ED) Additional Instructions: Take your medications as prescribed. If you were prescribed antibiotics today, it is important that you take your medication to their entirety, do not skip any doses, do not finish them early. Follow-up with your primary care provider this week. Return to the emergency department with new or worsening symptoms. Such as fevers, chills, chest pain, shortness of breath, nausea, vomiting, dizziness, headache, vision changes, lethargy In case of emergency call 911 Naproxen has been sent to your pharmacy, you tolerated this well in the department. Please take this as prescribed do not take this with ibuprofen, or other NSAIDs, do not mix this with alcohol. Side effects of this medication including increased risk for bleeding and possible kidney injury. EXAMINATION: XR HAND, RIGHT CLINICAL INFORMATION: Right hand pain COMPARISON: None available. TECHNIQUE: PA, lateral, and oblique views of the right hand. FINDINGS: Acute fracture of the neck of the fifth metacarpal results in mild overriding of the metacarpal head on the shaft and mild apex dorsal angulation at the fracture site. There is approximately 0.1 cm of cortical bone offset at the anterolateral aspect of the fractured metacarpal neck. Joint spaces are well-preserved throughout the hand and wrist. Alignment is normal at metacarpophalangeal and interphalangeal joints. IMPRESSIO Acute, minimally displaced fracture of the distal 5th metacarpal ( boxer's fracture ). Prescriptions: New naproxen 500 mg tablet 500 mg PO BID Qty: 14 0RF No Action fyijrjcjskrk-Ar-swaj-minerals 18-0.4 mg tablet PO Referrals: [facility] [Provider Group] - 3 days Physician,Unknown J [Primary Care Provider] - 2 days Stand Alone Forms: Work/School Release Interventions: ED Discharge Assessment Last Done: 10/10/23 18:35 Discharge Date/Time: 10/10/23 18:37 Print Language: Cameroonian
[2023-10-10 18:23] VITALS: BP 134/78; PULSE 71; RESP 17; TEMP 36.5; O2SAT 97; BMI 29.6
[2023-10-10 18:35] VITALS: BP 134/78; PULSE 71; RESP 17; TEMP 36.5; O2SAT 97
== END 2023-10-10 18:37 | disposition home or self-care (01) ==
PROVIDERS: Emergency Provider Emergency Medicine
DX: S62.316A Displaced fracture of base of fifth metacarpal bone, right hand, initial encounter for closed fracture (principal); W22.09XA Striking against other stationary object, initial encounter; Y93.89 Activity, other specified; Y92.9 Unspecified place or not applicable; Y99.9 Unspecified external cause status
CPT/HCPCS: 29125; 73130; 99282; 99283

== ENCOUNTER 2023-10-15 08:02 | Outpatient (REF) | payer OTHER, SELFPAY ==
--- NOTE | ~2023-10-15 | XR_ITS ---
EXAMINATION: XR HAND, RIGHT CLINICAL INFORMATION: Pain in right hand, attention fifth metacarpal. COMPARISON: 10/10/2023. TECHNIQUE: PA, lateral, and oblique views of the right hand. FINDINGS: Redemonstration of impacted fracture of the fifth metacarpal neck with mild overriding metacarpal head relative to the shaft and apex dorsal angulation at the fracture site. There is evidence of mild interval bridging callus formation. Decreased soft tissue swelling. Mild degenerative changes in the first carpometacarpal joint. XR/XR hand RT min 3V IMPRESSION: Redemonstration of impacted fracture of the fifth metacarpal neck with mild overriding metacarpal head relative to the shaft and apex dorsal angulation at the fracture site. There is evidence of mild interval bridging callus formation.
== END 2023-10-15 08:03 | disposition home or self-care (01) ==
LOC: HO.HOSX 08:02
DX: M79.641 Pain in right hand (principal)
CPT/HCPCS: 73130

== ENCOUNTER 2023-10-15 08:37 | Outpatient (AMB) | payer OTHER, SELFPAY ==
[2023-10-15 08:43] VITALS: BMI 29.5
--- NOTE | 2023-10-15 08:43 | A.OFFVIS_ITS ---
Vital Signs 10/15/23 08:43 Height 5 ft 4 in Weight 172 lb BMI 29.5 Intake Visit Reasons: FC- RT hand boxer's fx Intake Note: Dena is a 43 year old left hand dominant female who presents today for a evaluation of her right hand injury, DOI 10/08/23. Patient reports she punched a door that resulted her to injure her right hand. She notice swelling and throbbing pain on the lateral aspect of her hand. Currently is having tightness on the lateral aspect of the hand. Denies numbness and tingling. Allergies codeine Allergy (Intermediate, Verified 10/15/23 08:51) hives, flushing Sulfa (Sulfonamide Antibiotics) [Sulfa(Sulfonamide Antibiotics)] Allergy (Unknown, Verified 10/15/23 08:51) HIVES TO SULFA DRUGS droperidol [From Inapsine] Adverse Reaction (Unknown, Verified 10/15/23 08:51) AGITATION HPI HPI FC- RT hand boxer's fx: Details: Patient is a 43-year-old left-hand dominant female who presents to clinic today for evaluation of right 5th metacarpal fracture, date of injury 10/09/2023. Patient reports that she punched a door, and immediate the noticed pain and swelling in her right hand over the 5th metacarpal. Patient was previously evaluated in the ED, where she was placed in a splint. Today, the patient reports that she experiences a dull achiness occasionally in her right hand at the fracture site, but no acute or sharp pain. Patient also reports that her hand and wrist feel stiff after being removed from the splint today. 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 [facility] Medical History Heavy menstrual bleeding BRCA negative Surgical History History of loop electrical excision procedure (LEEP) History of tonsillectomy Family History Father BRCA gene mutation positive in male Prostate cancer Melanoma Mother TTP (thrombotic thrombocytopenic purpura) Stroke Paternal Grandmother Breast cancer Maternal Uncle Lung cancer Social History (Updated 10/15/23 @ 08:52 by Yo Hunt) Alcohol intake: current Alcohol intake frequency: a few times a month Patient Tobacco Use Status: Never used Tobacco Current occupational status: employed Current occupation: [employer]/ left hand dominant Sexual orientation: Straight/Heterosexual Gender identity: Female Female Reproductive History Menstrual Age of Menarche: 11 Review of Systems Const All systems reviewed & are unremarkable except as noted in HPI and below Physical Exam Vital Signs: BMI result Body Mass Index 29.5 Const Other: Patient is alert, oriented, cooperative, and in no acute distress HEENT Head: Yes normocephalic and Yes atraumatic Resp Effort & Inspection: normal respiratory effort and able to speak in complete sentences Cardio Jugular venous distension: no JVD Neuro General: gait normal Cognition (Neuro): normal cognition Extrem Other: Patient is alert, oriented, and in no acute distress. Neuro: Median, ulnar, radial nerves motor and sensory intact and sensation is normal to the tips of all digits. Vascular: Cap refill brisk Pain: Patient reports a dull achy sensation in the dorsal right hand, over the fracture site on the 5th metacarpal. ROM: Limited finger flexion due to stiffness after removal from splint today, but range of motion improves over the course of examination Full and intact finger extension Skin: No lacerations or abrasions. General: Mild ecchymosis and edema over and around the fracture site No erythema or evidence of infection No palpable head and palm deformity Psych: Appears grossly normal Affect normal Attitude cooperative Psych Appearance: grossly normal Mental Status: mental status grossly normal Office Procedures Fracture Care Details: Right 5th metacarpal neck fracture Fracture Billing Code: Fracture Billing Code Results Reviewed Results Reviewed: X-rays obtained in the office today and independently reviewed by me, Reid Cardona PA-C, demonstrate displaced right 5th metacarpal neck fracture, with approximately 10-15 degrees of volar angulation. Assessment & Plan Assessment & Plan (1) Closed boxer's fracture: Code(s): S62.339A - Displaced fracture of neck of unspecified metacarpal bone, initial encounter for closed fracture Category: Medical Qualifiers: Encounter type: initial encounter Qualified Code(s): S62.339A - Displaced fracture of neck of unspecified metacarpal bone, initial encounter for closed fracture Plan 1. Fifth metacarpal neck fracture, right After discussion with Dr. Montero, who was available in the office and saw the patient today, a collaborative treatment plan was formed At this time, surgical intervention is not needed in this patient Patient is right small and ring fingers will be shara-taped at all times to support and stabilize fracture site while allowing movement Patient will be given a Velcro wrist splint to wear when outside her house for additional support Patient given a work note for 3 weeks, but will be seen back in 2 to reassess if she can return to work at the time Patient will follow-up in clinic in 2 weeks, sooner with any acute concerns. Dr. Montero addendum: The patient and radiographs were seen and evaluated also by me in clinic. I formulated the treatment plan. Orders: Orders XR hand RT min 3V 10/15/23 M79.641 - Pain in right hand Coding Level of Care Code New Pt Level 3 (38926) Diagnoses Closed boxer's fracture, initial encounter S62.339A Encounter type: initial encounter CPT Codes Fracture Care - Fracture Billing Code: Fracture Billing Code ([id number])
== END 2023-10-15 09:33 | disposition home or self-care (01) ==
DX: S62.336A Displaced fracture of neck of fifth metacarpal bone, right hand, initial encounter for closed fracture (principal)
CPT/HCPCS: 99203

== ENCOUNTER 2023-10-29 10:03 | Outpatient (REF) | payer OTHER, SELFPAY ==
--- NOTE | ~2023-10-29 | XR_ITS ---
EXAMINATION: XR HAND, RIGHT CLINICAL INFORMATION: Pain in the right hand. COMPARISON: Right hand x-rays of 10/15/2023, 10/10/2023. TECHNIQUE: PA, lateral, and oblique views of the right hand. FINDINGS: Fracture through the distal diametaphysis of the fifth metacarpal with mild palmar angulation is again noted, without definite associated changes of healing. Fracture lucencies are still visible. No definite periosteal reaction is seen. No additional acute fractures are seen. No focal erosion. Remainder of the osseous structures and joint spaces are unremarkable. No soft tissue calcifications. XR/XR hand RT min 3V IMPRESSION: Right fifth metacarpal distal metadiaphyseal fracture does not appear to be significantly changed compared to previous x-rays of 10/10/2023. No definite associated changes of healing appreciated. Fracture lucencies are visible.
== END 2023-10-29 10:04 | disposition home or self-care (01) ==
LOC: HO.HOSX 10:03
DX: M79.641 Pain in right hand (principal)
CPT/HCPCS: 73130

== ENCOUNTER 2023-10-29 13:02 | Outpatient (AMB) | payer OTHER, SELFPAY ==
--- NOTE | 2023-10-29 13:12 | MHC.OFFVIS ---
Intake Visit Reasons: OV-RT hand boxlety's fx-w/xray Intake Note: Dena is a 43 year old left hand dominant female who presents today for a evaluation of her right hand injury, DOI 10/08/23. Patient reports feeling a lot better today. She is able to make a fist and apply some pressure to her hand. Patient informed me that when he was spreading her fingers she felt some discomfort on the ulnar aspect of the hand. Allergies codeine Allergy (Intermediate, Verified 10/29/23 13:16) hives, flushing Sulfa (Sulfonamide Antibiotics) [Sulfa(Sulfonamide Antibiotics)] Allergy (Unknown, Verified 10/29/23 13:16) HIVES TO SULFA DRUGS droperidol [From Inapsine] Adverse Reaction (Unknown, Verified 10/29/23 13:16) AGITATION HPI HPI OV-RT hand poli's fx-w/xray: Details: Patient is a 43-year-old female who presents for follow-up of displaced fracture of the right 5th metacarpal neck, date of injury 10/09/2023. Patient reports that she is feeling much better at this time, and her pain and swelling have decreased significantly since last evaluation. Patient reports that she has been compliant with shara taping and gentle range of motion, and states that she has been wearing the velcro wrist splint for daytime activities. The patient inquires if she will continue to have a visible and palpable deformity on the dorsal aspect of the 5th metacarpal. No other acute complaints or concerns at this time. 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 Neuro: Median, ulnar, radial nerves motor and sensory intact and sensation is normal to the tips of all digits. Vascular: Cap refill brisk Pain: Patient reports mild tenderness to palpation of the volar hand at the level of the fracture. No other tenderness to palpation noted ROM: Range of motion of the right hand full and intact Skin: No lacerations or abrasions. General: No ecchymosis, erythema, or evidence of infection. There is a visible and palpable deformity over the distal part of the 5th metacarpal Psych: Appears grossly normal Affect normal Attitude cooperative Results Reviewed Results Reviewed: X-rays obtained in the office today and independently reviewed by me, Reid Cardona PA-C, demonstrate displaced fracture of the right 5th metacarpal neck with approximately 10-15 degrees of volar angulation, with evidence of interval bony healing. Assessment & Plan Assessment & Plan (1) Closed boxer's fracture: Code(s): S62.339A - Displaced fracture of neck of unspecified metacarpal bone, initial encounter for closed fracture Category: Medical Qualifiers: Encounter type: initial encounter Qualified Code(s): S62.339A - Displaced fracture of neck of unspecified metacarpal bone, initial encounter for closed fracture Plan 1. Right 5th metacarpal fracture Date of injury 10/09/2023 Patient is recovering well from this injury Patient is educated about the typical recovery course Patient is informed that she will continue to wear shara tape the vast majority of the time, as well as a Velcro wrist splint with daytime activities, for at least 1 more week Patient states that she has FMLA until the , and is also off work for the week of November, and inquires as to whether she can return to work at that time. Patient is informed that, at visit next week, I will have a discussion with Dr. Montero in terms of how he can return to work Patient is educated that if she can work avoiding using her right small finger, it may be a possibility for her to return to work at that time Patient will follow-up in [address] Montero in office with repeat x-rays for 1 month re-evaluation, sooner with any acute concerns Orders: Orders XR hand RT min 3V Today M79.641 - Pain in right hand Coding Level of Care Code Global ([id number]) Diagnoses Closed boxer's fracture, initial encounter S62.339A Encounter type: initial encounter
== END 2023-10-29 14:13 | disposition home or self-care (01) ==
DX: S62.336A Displaced fracture of neck of fifth metacarpal bone, right hand, initial encounter for closed fracture (principal); Z48.89 Encounter for other specified surgical aftercare
CPT/HCPCS: 99213

== ENCOUNTER 2023-11-05 08:30 | Outpatient (REF) | payer OTHER, SELFPAY ==
--- NOTE | ~2023-11-05 | XR_ITS ---
EXAMINATION: XR HAND, RIGHT CLINICAL INFORMATION: Follow up of right hand fifth metacarpal fracture. COMPARISON: Right hand x-rays of 10/29/2023, 10/15/2023, 10/10/2023. TECHNIQUE: PA, lateral, and oblique views of the right hand. FINDINGS: Fracture through the distal diametaphysis of the fifth metacarpal is again noted with mild changes of sclerosis in the region. Fracture lucency is still visible, however, less apparent compared to previous x-rays. No evidence of periosteal reaction. Fifth MCP joint alignment is maintained. Remainder of the osseous structures, joint spaces and soft tissues are unremarkable. No focal erosion. XR/XR hand RT min 3V IMPRESSION: Known right fifth metacarpal distal metadiaphyseal fracture with changes of sclerosis in the vicinity of the fracture suggesting healing. Fracture lucencies are still visible, however, less apparent compared to previous radiographs.
== END 2023-11-05 08:31 | disposition home or self-care (01) ==
LOC: HO.HOSX 08:30
DX: M79.641 Pain in right hand (principal)
CPT/HCPCS: 73130

== ENCOUNTER 2023-11-05 10:17 | Outpatient (AMB) | payer OTHER, SELFPAY ==
--- NOTE | 2023-11-05 10:45 | A.OFFVIS_ITS ---
Intake Visit Reasons: OV - rt closed boxer fx, DOI 10/08/23 Intake Note: Dena is a 43 year old left hand dominant female who presents today for a follow up of her right closed boxer fx, DOI 10/08/23. Patient reports feeling a bit better, however still having some tightness when she closes her fist. Allergies codeine Allergy (Intermediate, Verified 11/05/23 10:49) hives, flushing Sulfa (Sulfonamide Antibiotics) [Sulfa(Sulfonamide Antibiotics)] Allergy (Unknown, Verified 11/05/23 10:49) HIVES TO SULFA DRUGS droperidol [From Inapsine] Adverse Reaction (Unknown, Verified 11/05/23 10:49) AGITATION HPI HPI OV - rt closed boxer fx, DOI 10/08/23: Details: Patient is a 43-year-old female who presents for follow-up of boxer's fracture of right 5th metacarpal, date of injury 10/08/2023. Today, the patient reports that she is feeling much better, and is not experiencing any pain. The patient does report that she experiences stiffness when she attempts to abduct the small finger, but she feels this is due to shara taping. Denies any numbness or tingling. Patient inquires as to whether or not she can return to work in 2 weeks. No other acute complaints or concerns at this time. [facility] Medical History Heavy menstrual bleeding BRCA negative Surgical History History of loop electrical excision procedure (LEEP) History of tonsillectomy Family History Father BRCA gene mutation positive in male Prostate cancer Melanoma Mother TTP (thrombotic thrombocytopenic purpura) Stroke Paternal Grandmother Breast cancer Maternal Uncle Lung cancer Social History (Updated 10/15/23 @ 08:52 by Yo Hunt) Alcohol intake: current Alcohol intake frequency: a few times a month Patient Tobacco Use Status: Never used Tobacco Current occupational status: employed Current occupation: [employer]/ left hand dominant Sexual orientation: Straight/Heterosexual Gender identity: Female Female Reproductive History Menstrual Age of Menarche: 11 Review of Systems Const All systems reviewed & are unremarkable except as noted in HPI and below Physical Exam Extrem Other: Patient is alert, oriented, and in no acute distress. Neuro: Median, ulnar, radial nerves motor and sensory intact and sensation is normal to the tips of all digits. Vascular: Cap refill brisk Pain: Patient reports no tenderness to palpation of the volar hand at the level of the fracture. No other tenderness to palpation noted ROM: Range of motion of the right hand full and intact Skin: No lacerations or abrasions. General: No ecchymosis, erythema, or evidence of infection. There is a visible and palpable deformity over the distal part of the 5th metacarpal Psych: Appears grossly normal Affect normal Attitude cooperative Results Reviewed Results Reviewed: X-rays obtained in the office today and independently reviewed by me, Reid Cardona PA-C, demonstrate displaced and slightly impacted fracture of the right 5th metacarpal neck with approximately 10-15 degrees of volar angulation, with evidence of interval bony healing. Assessment & Plan Assessment & Plan (1) Closed boxer's fracture: Code(s): S62.339A - Displaced fracture of neck of unspecified metacarpal bone, initial encounter for closed fracture Category: Medical Qualifiers: Encounter type: initial encounter Qualified Code(s): S62.339A - Displaced fracture of neck of unspecified metacarpal bone, initial encounter for closed fracture Plan 1. Right 5th metacarpal fracture Date of injury 10/09/2023 Patient is recovering well from this injury Patient is educated about the typical recovery course Patient is informed that she will continue to wear hsara tape the vast majority of the time for 2 more weeks, however she can discontinue use of velcro wrist splint at this time Patient states that she has FMLA until the , and is also off work for the week of November. Patient inquires if she could potentially have the week of November off to allow for increased healing before return to work I feel this plan is reasonable and we will give her time off from work until the 23 of November Patient will follow-up in 3-[address] Montero in office with repeat x- rays for re-evaluation, sooner with any acute concerns Orders: Orders XR hand RT min 3V Today M79.641 - Pain in right hand Coding Level of Care Code Global (94009) Diagnoses Closed boxer's fracture, initial encounter S62.339A Encounter type: initial encounter
== END 2023-11-05 11:08 | disposition home or self-care (01) ==
DX: S62.336A Displaced fracture of neck of fifth metacarpal bone, right hand, initial encounter for closed fracture (principal)
CPT/HCPCS: 99213

== ENCOUNTER 2023-12-02 19:07 | Outpatient (REF) | payer OTHER, SELFPAY ==
--- NOTE | ~2023-12-02 | XR_ITS ---
EXAMINATION: XR HAND, RIGHT CLINICAL INFORMATION: Pain in the right and COMPARISON: X-ray of the right hand October 2023 TECHNIQUE: PA, lateral, and oblique views of the right hand. FINDINGS: A fracture of the distal 5th metacarpal is redemonstrated. No change in alignment. Fracture line slightly less conspicuous indicative of partial interval healing. The remaining bones joints and soft tissues are unremarkable. XR/XR hand RT min 3V IMPRESSION: Healing 5th metacarpal fracture unchanged in alignment. Electronically signed by: King Macias MD 12/23/2023 07:37 AM EDT
== END 2023-12-02 19:08 | disposition home or self-care (01) ==
LOC: HO.HOSX 19:07
DX: M79.641 Pain in right hand (principal)
CPT/HCPCS: 73130

== ENCOUNTER 2023-12-03 08:32 | Outpatient (AMB) | payer OTHER, SELFPAY ==
--- NOTE | 2023-12-03 08:39 | MHC.OFFVIS ---
Vital Signs 12/03/23 08:46 Handedness Left Intake Visit Reasons: OV - rt closed boxer fx, DOI 10/08/23 Intake Note: Dena is a 43 year old left hand dominant female who presents today for a follow up of her right closed boxer fx, DOI 10/08/23. Patient reports she has discontinued her velcro splint since her return to work. She has continued to shara tape, she removes it at home to see how her ROM is doing. She expresses mild pain with abduction and tightness at her MCP joint of her right pinky. Her concern is if her finger will stay displaced or if it is still in the healing process and will she feel the tightness forever or if this will graducally get better. Denies numbness and tingling. Allergies codeine Allergy (Intermediate, Verified 12/03/23 08:46) hives, flushing Sulfa (Sulfonamide Antibiotics) [Sulfa(Sulfonamide Antibiotics)] Allergy (Unknown, Verified 12/03/23 08:46) HIVES TO SULFA DRUGS droperidol [From Inapsine] Adverse Reaction (Unknown, Verified 12/03/23 08:46) AGITATION HPI HPI OV - rt closed boxer fx, DOI 10/08/23: Details: Patient is a 43-year-old female who presents for 4 week follow-up of right boxer's fracture, date of injury 10/08/2023. Today, the patient reports that she is feeling well, and then her only concern is that she is feeling stiff in the right small finger, particularly with flexion, adduction, and adduction. Patient reports that she has not been wearing the Velcro wrist splint much, but she has remained shara-taped consistently since previous visit. The patient reports no pain or discomfort at the level of the fracture, and states that she has returned to work full duty without difficulty. Patient denies any numbness or tingling in the right upper extremity. No other acute complaints or concerns at this time. [facility] Medical History Heavy menstrual bleeding BRCA negative Surgical History History of loop electrical excision procedure (LEEP) History of tonsillectomy Family History Father BRCA gene mutation positive in male Prostate cancer Melanoma Mother TTP (thrombotic thrombocytopenic purpura) Stroke Paternal Grandmother Breast cancer Maternal Uncle Lung cancer Social History Alcohol intake: current Alcohol intake frequency: a few times a month Patient Tobacco Use Status: Never used Tobacco Current occupational status: employed Current occupation: [employer]/ left hand dominant Sexual orientation: Straight/Heterosexual Gender identity: Female Female Reproductive History Menstrual Age of Menarche: 11 Physical Exam Extrem Other: Patient is alert, oriented, and in no acute distress. Neuro: Patient reports normal sensation of the tips of all digits of the right upper extremity at this time Vascular: Cap refill brisk Pain: Patient reports no tenderness to palpation over the 5th metacarpal The patient does report some mild discomfort with making a closed fist in the dorsal 5th digit and MCP joint, but states that she would not describe this as pain Patient describes a similar discomfort with gentle abduction and adduction of the right small finger ROM: Patient is able to make a closed fist without difficulty Skin: No lacerations or abrasions. General: No ecchymosis, erythema, or evidence of infection. Psych: Appears grossly normal Affect normal Attitude cooperative Results Reviewed Results Reviewed: X-rays obtained yesterday and independently reviewed by me, Reid Cardona PA-C, demonstrate well-healing fracture of the 5th metacarpal neck with evidence of strong interval bony healing. Assessment & Plan Assessment & Plan (1) Closed boxer's fracture: Code(s): S62.339A - Displaced fracture of neck of unspecified metacarpal bone, initial encounter for closed fracture Category: Medical Qualifiers: Encounter type: initial encounter Qualified Code(s): S62.339A - Displaced fracture of neck of unspecified metacarpal bone, initial encounter for closed fracture Plan 1. Displaced boxer's fracture of right 5th metacarpal neck Date of injury 10/08/2023 Patient appears to be recovering well from her injury Patient is educated about the typical recovery course At this time, the patient is informed that she can discontinue shara taping Patient is also educated that she can return to normal daytime activities as tolerated Patient is educated that at about 8 weeks is when we expect to see strong bony healing, and her x-rays also demonstrate this Patient is also referred to occupational hand therapy for the mild stiffness she is experiencing in her right small finger Patient is amenable to this plan Patient will follow-up as needed with any acute concerns Orders: Orders XR hand RT min 3V 12/02/23 M79.641 - Pain in right hand OT Evaluation and Treatment Today S62.339A - Displaced fracture of neck of unspecified metacarpal bone, initial encounter for closed fracture Coding Level of Care Code Global (24781) Diagnoses Closed boxer's fracture, initial encounter S62.339A Encounter type: initial encounter
== END 2023-12-03 09:12 | disposition home or self-care (01) ==
DX: S62.339A Displaced fracture of neck of unspecified metacarpal bone, initial encounter for closed fracture (principal)
CPT/HCPCS: 99213

== ENCOUNTER 2023-12-11 13:04 | Outpatient (AMB) | payer OTHER, SELFPAY ==
--- NOTE | 2023-12-11 13:14 | A.OFFVIS_ITS ---
Vital Signs 12/11/23 13:20 Height 5 ft 4 in Weight 171 lb 15.369 oz BMI 29.5 Respiration 72 H Intake Visit Reasons: 6 month breast exam Intake Note: Patient is seen in office for 6 month follow up visit, breast exam. 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 She has a family history of BRCA2 mutation in her father. Her father was diagnosed with metastatic prostate cancer and subsequent underwent radiation therapy to the spine. He also has a history of metastatic melanoma. Paternal grandmother was diagnosed with breast cancer the age of 65 and maternal grandmother was treated for lung cancer. Patient underwent genetic testing which was negative for BRCA mutation however 2 variants of unknown significance were identified. [facility] remaining lifetime risk of breast cancer was calculated at 34.8% placing her high risk for breast cancer. She was started on the high risk protocol including twice yearly clinical breast examinations, yearly mammogram alternating in 6 months with yearly breast MRIs. Her last breast MRI performed on 06/10/2022 revealed extensive heterogeneous non mass background enhancement which could obscure a significant abnormality. No convincing evidence of malignancy or suspicious interval change (BI-RADS 2 bilaterally). She is awaiting the new breast MRI and planning a repeat MRI in 01/25/2024. Mammogram performed on 12/16/2022 revealed no mammographic evidence of malignancy (BI-RADS 2). She is now due for her annual mammogram. She denies any new breast symptoms. [facility] Medical History Heavy menstrual bleeding BRCA negative Surgical History History of loop electrical excision procedure (LEEP) History of tonsillectomy Family History Father BRCA gene mutation positive in male Prostate cancer Melanoma Mother TTP (thrombotic thrombocytopenic purpura) Stroke Paternal Grandmother Breast cancer Maternal Uncle Lung cancer Social History Alcohol intake: current Alcohol intake frequency: a few times a month Patient Tobacco Use Status: Never used Tobacco Current occupational status: employed Current occupation: [employer]/ left hand dominant Sexual orientation: Straight/Heterosexual Gender identity: Female Female Reproductive History Menstrual Age of Menarche: 11 Review of Systems Const All systems reviewed & are unremarkable except as noted in HPI and below Denies chills, Denies fever(s), Denies headache(s) and Denies poor appetite ENT Denies dizziness and Denies headache(s) Card Denies chest pain, Denies rapid heart rate, Denies palpitations and Denies slow heart rate Resp Denies chest congestion, Denies cough, Denies pain on inspiration and Denies wheezing GI Denies abdominal pain, Denies bloating, Denies change in stool character, Denies constipation, Denies diarrhea, Denies nausea, Denies vomiting and Denies hematemesis Musc Denies back pain, Denies arthralgias, Denies joint swelling and Denies numbness Skin/Breast Denies change in pigmentation, Denies erythema and Denies rash Neuro Denies dizziness, Denies headache(s) and Denies numbness Psych Denies anxiety and Denies depression Endo Denies palpitations Kaz/Lymph Denies easy bleeding, Denies easy bruising and Denies lymphadenopathy Aller/Immun Denies wheezing Physical Exam Vital Signs: Last Vital Signs Resp 72 H 12/11/23 13:20 BMI result Body Mass Index 29.5 Const General: no acute distress and well developed Nutritional Appearance: well nourished Orientation/consciousness: patient oriented x3 Limitations: no limitations HEENT Head: Yes normocephalic and Yes atraumatic Eyes Sclerae: sclerae normal EOM: EOMs intact bilaterally Neck Neck: Yes no lymphadenopathy Chest Other: Left breast: No skin change, no nipple retraction, no nipple discharge, no palpable mass, no enlarged lymph nodes. Right breast: No skin change, no nipple retraction, no nipple discharge, no palpable mass, no enlarged lymph nodes Resp Effort & Inspection: normal respiratory effort and no cough Skin Other: Warm and dry, no rash General skin exam: no rashes or lesions noted Neuro General: patient oriented x3 Extrem General: Yes no clubbing, cyanosis or edema Assessment & Plan Assessment & Plan (1) Family history of BRCA gene mutation: Code(s): Z84.81 - Family history of carrier of genetic disease Category: Medical (2) At high risk for breast cancer: Code(s): Z91.89 - Other specified personal risk factors, not elsewhere classified Category: Medical Plan 43-year-old female patient with strong family history of breast cancer found to have an elevated Tyrer-zi risk a 34.8% lifetime remaining risk of breast cancer. She underwent an ultrasound-guided core biopsy which revealed benign breast tissue. Breast MRI of 06/10/2022 revealed no convincing evidence of malignancy in either breast (BI-RADS 2). Mammogram dated 12/16/2022 revealed no mammographic evidence of malignancy (BI-RADS 2). Examination today revealed no suspicious findings in either breast. She should follow up in 6 months for routine breast examination, sooner p.r.n.. She will obtain a breast MRI in January 2024 and is now due for her annual mammogram. Orders: Orders MM screening mammo BI 12/18/23 Z84.81 - Family history of carrier of genetic disease, Z91.89 - Other specified personal risk factors, not elsewhere classified Coding Level of Care Code Est Pt Level 3 (03281) Diagnoses Family history of BRCA gene mutation Z84.81 At high risk for breast cancer Z91.89
[2023-12-11 13:20] VITALS: RESP 72; BMI 29.5
== END 2023-12-11 13:41 | disposition home or self-care (01) ==
PROVIDERS: Visit Provider Surgery
DX: Z84.81 Family history of carrier of genetic disease (principal); Z91.89 Other specified personal risk factors, not elsewhere classified
CPT/HCPCS: 99213

== ENCOUNTER → 2023-12-11 13:04 | Outpatient (BNVA) | payer OTHER, SELFPAY | PROVIDERS: Visit Provider Surgery ==

== ENCOUNTER 2023-12-29 11:59 | Outpatient (REF) | payer OTHER, SELFPAY ==
--- NOTE | ~2023-12-29 | US_ITS ---
EXAMINATION: US PELVIS CLINICAL INFORMATION: Benign neoplasm of connective tissue. Fibroids. COMPARISON: Portions of a previous study 01/02/23 TECHNIQUE: Ultrasound of the pelvis is performed using both transabdominal and transvaginal transducers along with Doppler. Transvaginal imaging is performed due to inadequate visualization transabdominally. FINDINGS: No suspicious abnormality in the expected region of the vagina. Uterus: The uterus is retroverted and and retroflexed. The uterus measures measures 8.0 x 3.8 x 4.6 cm. The estimated cervical length is 2.7 cm. No suspicious abnormality of the cervix The double wall endometrial thickness is 8 mm. The endometrial region is slightly heterogeneous. The serosal contour of the uterus is relatively smooth. The orientation limits assessment. There is a 0.9 cm hypoechoic abnormality within the myometrium in the anterior right side of the uterine body. No suspicious interval change. There is a 0.9 cm hypoechoic myometrial mass along the ventral left side of the uterine body. No suspicious interval change. Adnexa: Both ovaries are visualized. There is normal color flow to the adnexa. There is no ovarian torsion. There is no pelvic ascites or fluid collection. Right ovary measures 3.7 x 1.9 x 2.1 cm. The estimated right ovarian volume is 8 mL. Some small probably physiologic cyst did not require any specific imaging follow-up Left ovary measures 1.9 x 1.9 x 1.2 cm. The estimated left ovarian volume is 2 mL. No suspicious left adnexal mass or collection. Minimal amount of nonspecific free pelvic fluid. There is color signal within the right ovary. There is color signal within the left ovary. US/US pelvic and transvaginal IMPRESSION: There are small hypoechoic myometrial masses measuring slightly less than 1 cm. Statistically these represent uterine fibroids. No suspicious interval change Electronically signed by: Tyrone Lopez MD 12/29/2023 06:05 PM EDT
== END 2023-12-29 12:00 | disposition home or self-care (01) ==
LOC: HO.US 11:59
PROVIDERS: Visit Provider Advanced Practice Midwife
DX: D21.9 Benign neoplasm of connective and other soft tissue, unspecified (principal)
CPT/HCPCS: 76830; 76856

== ENCOUNTER 2024-01-08 16:20 | Outpatient (REF) | payer OTHER, SELFPAY ==
--- NOTE | ~2024-01-08 | MM_ITS ---
EXAMINATION: MM SCREENING DIGITAL BREAST TOMOSYNTHESIS, BILATERAL CLINICAL INFORMATION: Screening. Asymptomatic. COMPARISON: Mammography: Comparison is made with available priors TECHNIQUE: Digital breast mammography with tomosynthesis is performed in both the craniocaudal and mediolateral oblique views along with computer-aided detection (CAD). FINDINGS: The breasts are heterogeneously dense, which may obscure small masses (ACR BI-RADS breast composition Category c). Bilateral circumscribed oval masses which wax and wane consistent with benign fibrocystic changes. Some are demonstrated to be simple cysts on prior ultrasounds. There are no significant masses, abnormal calcifications, or other abnormalities. MM/MM tomosynthesis screening BI IMPRESSION: No mammographic evidence of malignancy. ASSESSMENT: BI-RADS BI-RADS 2 - Benign Findings RECOMMENDATION: Routine annual mammography screening. 1 year F/U This examination should not preclude the clinical evaluation of a suspicious palpable abnormality. This patient's information was entered into a reminder system with a target due date for their next mammogram. Electronically signed by: Luz Spring DO 01/21/2024 12:23 PM EDT
== END 2024-01-08 16:21 | disposition home or self-care (01) ==
LOC: HO.MAMMO 16:20
PROVIDERS: Visit Provider Surgery
DX: Z12.31 Encounter for screening mammogram for malignant neoplasm of breast (principal)
CPT/HCPCS: 77063; 77067

== ENCOUNTER → 2024-01-08 16:30 | Outpatient (BNV) | payer OTHER, SELFPAY | PROVIDERS: Visit Provider Internal Medicine | DX: Z12.31 Encounter for screening mammogram for malignant neoplasm of breast (principal) | CPT/HCPCS: 77063; 77067 ==

== ENCOUNTER 2024-01-26 14:04 | Outpatient (AMB) | payer OTHER, SELFPAY ==
[2024-01-26 14:07] VITALS: BP 110/78; PULSE 79; O2SAT 98
--- NOTE | 2024-01-26 14:07 | A.OFFPC_ITS ---
Vital Signs 01/26/24 14:07 Height 5 ft 4 in Weight 175 lb BMI 30.0 BP 110/78 Blood Pressure Location Rt brachial Position Sitting Pulse 79 Pulse Source Pulse Oximeter Pulse Oximetry (%) 98 Oxygen Delivery Method Room Air Intake Visit Reasons: enmanuel from [facility]/back issues Allergies bismuth subsalicylate [From Pepto-Bismol] Allergy (Intermediate, Verified 01/26/24 14:11) Rash codeine Allergy (Intermediate, Verified 01/26/24 14:10) hives, flushing Sulfa (Sulfonamide Antibiotics) [Sulfa(Sulfonamide Antibiotics)] Allergy (Unknown, Verified 01/26/24 14:10) HIVES TO SULFA DRUGS droperidol [From Inapsine] Adverse Reaction (Unknown, Verified 01/26/24 14:10) AGITATION Tobacco use date assessed: 01/26/24 Dental Screening Dental Screen Date: 01/26/24 Did you have a dental visit in the last 12 months?: Yes Did you have a dental problem in the last 6 months where you did not have access to dental care?: No Was dental information given to patient?: Patient has dentist HPI HPI Comments History of Present Illness Details 44 year old female with a past medical h istory of depression, low back pain, elevated breast cancer risk presenting for follow up Elevated breast cancer risk: Follows with breast center. Mammo UTD. MRI pending MSK: Frequent episodes of flares in low back pain. Chronic baseline low back pain. Flares multiple times annually. She tweaks it doing any menial task, bending over, gettring up. Stopping her from exercising as she would like. She is scare to set it off. Once it flares she can hardly move. It starts and then spasms all along the mid and lower back ROS see HPI PHYSICAL EXAM: GENERAL: Alert and oriented x 3. NAD EYES: EOMI. Anicteric. HENT: Moist mucous membranes. No scleral icterus. No cervical lymphadenopathy. LUNGS: Clear to auscultation bilaterally. CARDIOVASCULAR: Regular rate and rhythm. No murmur. No JVD. ABDOMEN: Soft, non-tender +bs EXTREMITIES: No edema. Non-tender. SKIN: No rashes or lesions. Warm. NEUROLOGIC: No focal neurological deficits. CN II-XII grossly intact PSYCHIATRIC: Cooperative. Appropriate mood and affect [facility] Medical History Heavy menstrual bleeding BRCA negative Surgical History History of loop electrical excision procedure (LEEP) History of tonsillectomy Family History Father BRCA gene mutation positive in male Prostate cancer Melanoma Substance abuse Mother TTP (thrombotic thrombocytopenic purpura) Stroke Mental health disorder Paternal Grandmother Breast cancer Maternal Uncle Lung cancer Social History Housing: House Alcohol intake: current Alcohol intake frequency: a few times a month Patient Tobacco Use Status: Never used Tobacco e-Cigarette/Vaping Use: Never Used Current occupational status: employed Current occupation: [employer]/ left hand dominant Sexual orientation: Straight/Heterosexual Gender identity: Female Cognitive needs: No Hearing needs: No Vision needs: Yes Female Reproductive History Menstrual Age of Menarche: 11 Questionnaire PHQ-9 Over the last 2 weeks, how often have you been bothered by any of the following problems? 1. Little interest or pleasure in doing things: not at all 2. Feeling down, depressed, or hopeless: not at all 3. Trouble falling or staying asleep, or sleeping too much: not at all 4. Feeling tired or having little energy: several days 5. Poor appetite or overeating: several days 6. Feeling bad about yourself - or that you are a failure or have let yourself or your family down: not at all 7. Trouble concentrating on things, such as reading the newspaper or watching television: not at all 8. Moving or speaking so slowly that other people could have noticed. Or the opposite - being so fidgety or restless that you have been moving around a lot more than usual: not at all 9. Thoughts that you would be better off or of hurting yourself in some way: not at all Total score: 2 Depression Screening Interpretation: Negative Depression Screening Done: Yes 75126 - PHQ-9 Billing: Yes Source: Developed by Drs. Leoncio Tucker, Meenu Wellington, Herberth Mcgill and colleagues, with an educational maya from [employer]. Thrive Questionnaire Date Thrive assessed: 01/23/24 I am a: Patient What is your living situation today?: I have a steady place to live Within the past 12 months, did the food you bought not last and you didn't have the money to get more?: Never true Within the past 12 months, did you worry whether your food would run out before you got money to buy more?: Never true Do you have trouble paying for medicines?: No Do you have trouble getting transportation to medical appointments?: No Do you have trouble paying your heating and electricity bill?: No Do you have trouble taking care of your child, family member or friend?: No Do you have trouble with day-to-day activities such as bathing, preparing meals, shopping, managing finances, etc.?: No Are you currently unemployed and looking for a job?: No Are you interested in more education?: No Please select the resources that you would like help with: None Currently or been in a relationship where the following occur: No concerns reported THRIVE Score: 0 AUDIT C Alcohol Use Questionnaire (AUDIT-C) 1. How often do you have a drink containing alcohol?: 2-4 times a month 2. How many drinks containing alcohol do you have on a typical day when you are drinking?: 1 or 2 3. How often do you have six or more drinks on one occasion?: Never Total Score: 2 BARBARA-7 AMB Questionnaire BARBARA-7 Date BARBARA - 7 assessed: 01/26/24 Feeling nervous, anxious, or on edge: 1 = Several days Not being able to stop or control worryin = Not at all Worrying too much about different things: 1 = Several days Trouble relaxin = Several days Being so restless that it is hard to sit still: 0 = Not at all Becoming easily annoyed or irritable: 1 = Several days Feeling afraid as if something awful might happen: 0 = Not at all Total BARBARA-7 score (0-4 normal; 5-9 mild; 10-14 moderate; 15-21 severe): 4 Source: Developed by Drs. Leoncio Tucker, Meenu Wellington, Herberth Mcgill and colleagues, with an educational maya from [employer]. BARBARA-7 Assessment Billing BARBARA-7 Assessment Tool: BARBARA-7 Assessment 00386 Physical exam (Primary Care) Vital Signs: Last Vital Signs Pulse 79 10/21/24 14:07 BP 110/78 01/26/24 14:07 Pulse Ox 98 01/26/24 14:07 Oxygen Delivery Method Room Air 01/26/24 14:07 BMI result Body Mass Index 30.0 Tobacco/Smoking Status: Tobacco use Status Tobacco use date assessed 01/26/24 01/26/24 14:14 Patient Tobacco Use Status Never used Tobacco 01/26/24 14:14 e-Cigarette/Vaping Use Never Used 01/26/24 14:14 PHQ-9: PHQ-9 Score PHQ-9: Total score 2 02/01/24 09:30 Depression Screening Interpretation: Negative Thrive Assessment: Date of Thrive Assessment Date Thrive assessed 01/23/24 01/26/24 14:14 Currently or been in a relationship where the following occur: No concerns reported Coding Level of Care Code Est Pt Level 4 (05076) Complex EM visit Add On G2211 Diagnoses Lumbosacral radiculopathy due to degenerative joint disease of spine M47.27 Fatigue, unspecified type R53.83 Fatigue type: unspecified At high risk for breast cancer Z91.89 Additional Codes BARBARA-7 Assessment Billing - BARBARA-7 Assessment Tool: BARBARA-7 Assessment 02301 ([id number]) Assessment & Plan Assessment & Plan (1) Lumbosacral radiculopathy due to degenerative joint disease of spine: Code(s): M47.27 - Other spondylosis with radiculopathy, lumbosacral region Category: Medical Plan: Xray ordered. Pursue MRI, spine referral With flare, prednisone pulse. Flexeril prn. NSAIDS prn. Recommend weight loss. semaglutide sent. (2) Fatigue: Code(s): R53.83 - Other fatigue Category: Medical Qualifiers: Fatigue type: unspecified Qualified Code(s): R53.83 - Other fatigue Plan: Labs ordered (3) At high risk for breast cancer: Code(s): Z91.89 - Other specified personal risk factors, not elsewhere classified Category: Medical Plan: continue follow up breast center Orders: Orders Complete Blood Count Auto Diff 01/26/24 R53.83 - Other fatigue, Z13.0 - Encounter for screening for diseases of the blood and blood-forming organs and certain disorders involving the immune mechanism, Z13.220 - Encounter for screening for lipoid disorders, Z13.228 - Encounter for screening for other metabolic disorders Comprehensive Met. Panel 01/26/24 R53.83 - Other fatigue, Z13.0 - Encounter for screening for diseases of the blood and blood-forming organs and certain disorders involving the immune mechanism, Z13.220 - Encounter for screening for lipoid disorders, Z13.228 - Encounter for screening for other metabolic disorders Lyme IgG/IgM w/reflex to WB 01/26/24 R53.83 - Other fatigue, Z13.0 - Encounter for screening for diseases of the blood and blood-forming organs and certain disorders involving the immune mechanism, Z13.220 - Encounter for screening for lipoid disorders, Z13.228 - Encounter for screening for other metabolic disorders XR lumbar spine 2-3V 01/26/24 M47.27 - Other spondylosis with radiculopathy, lumbosacral region Lipid Panel 01/26/24 R53.83 - Other fatigue, Z13.0 - Encounter for screening for diseases of the blood and blood-forming organs and certain disorders involving the immune mechanism, Z13.220 - Encounter for screening for lipoid disorders, Z13.228 - Encounter for screening for other metabolic disorders TSH reflex Free T4 01/26/24 R53.83 - Other fatigue, Z13.0 - Encounter for screening for diseases of the blood and blood-forming organs and certain disorders involving the immune mechanism, Z13.220 - Encounter for screening for lipoid disorders, Z13.228 - Encounter for screening for other metabolic disorders Medications: New cyclobenzaprine 10 mg PO BEDTIME PRN 30 tabs 3RF muscle spasm prednisone 40 mg (2 x 20 mg) PO DAILY PRN 10 tabs 3RF back spasm 5 days semaglutide for 4 weeks. Can substitute any concentration for equivalent of 0.25mg dose subcutaneous weekly 0.25 mg (0.368 mL) subcut QWEEK 3 mL 0RF
== END 2024-01-26 15:06 | disposition home or self-care (01) ==
PROVIDERS: PCP Internal Medicine; Visit Provider Internal Medicine
DX: M47.27 Other spondylosis with radiculopathy, lumbosacral region (principal); R53.83 Other fatigue; Z91.89 Other specified personal risk factors, not elsewhere classified

== ENCOUNTER → 2024-01-26 14:04 | Outpatient (BNVA) | payer OTHER, SELFPAY | PROVIDERS: Visit Provider Internal Medicine | DX: M47.27 Other spondylosis with radiculopathy, lumbosacral region (principal); R53.83 Other fatigue; Z91.89 Other specified personal risk factors, not elsewhere classified | CPT/HCPCS: 96127 ==

== ENCOUNTER 2024-02-07 11:05 | Outpatient (AMB) | payer OTHER, SELFPAY ==
--- NOTE | 2024-02-07 11:10 | AM.OFFWIN_ITS ---
Intake Vital Signs 02/07/24 11:11 Height 5 ft 4 in Weight 175 lb BMI 30.0 BP 112/70 Blood Pressure Location Rt brachial Position Sitting Pulse 68 Pulse Source Pulse Oximeter Temp 98.1 F Temp Source Oral Pulse Oximetry (%) 98 Oxygen Delivery Method Room Air Intake Visit Reasons: EP- Cough for 3W, worsening Intake Note: pt is here for cough, not getting better. ongoing for 3 weeks Patient Tobacco Use Status: Never used Tobacco Allergies bismuth subsalicylate [From Pepto-Bismol] Allergy (Intermediate, Verified 02/07/24 11:37) Rash codeine Allergy (Intermediate, Verified 02/07/24 11:37) hives, flushing Sulfa (Sulfonamide Antibiotics) [Sulfa(Sulfonamide Antibiotics)] Allergy (Unknown, Verified 02/07/24 11:37) HIVES TO SULFA DRUGS droperidol [From Inapsine] Adverse Reaction (Unknown, Verified 02/07/24 11:37) AGITATION Medication List - Last Reconciled 02/07/24 by Mandie Garcia, [employer] COMMUNICATIONS ADMINISTRATOR- cyclobenzaprine 10 mg PO BEDTIME PRN qzfoxrsenrzg-An-whei-minerals tabs PO pen needle, diabetic (BD Ultra-Fine Sherry Pen Needle) once weekly prednisone 40 mg (2 x 20 mg) PO DAILY PRN 5 days Do you need a note to return to daycare/school/sports/work: No HPI HPI Comments History of Present Illness Details 44 year old female here today with orestes f complaints of a cough that started about 3 weeks ago. She reports that at night the cough is very dry however during the day it is more congested. Her is sick at home as well. Her daughter did have COVID back in December and has been coughing since; She recently completed antibiotics. She does report that other than the cough she really feels fine. She denies any fever, chills, chest pain, sore throat. Has been using smjw-eob-[id number] Tussin without relief. Denies personal hx of asthma. Exam Awake alert NAD Sclera and conjunctiva clear bilat Nares with thick mucoid discharge bilat worse on the left, turbinates edematous and pale, no sinus tenderness with palpation bilat TM intact and clear bilat MMM, pharynx WNL RRR LS increased bronchial sounds, hacking cough noted during exam without distress Plan: check chest x-ray given the chronicity of the cough. Chest x-ray is within normal limits. See results below. Her cough may be reactive to a sinus infection. Treat with Augmentin and Tessalon. She also reports that cold seems to trigger her cough. Therefore I will prescribe an albuterol inhaler to be used p.r.n.. Supportive care. Reasons to follow up provided. This note is constructed using voice recognition software. While every effort has been made to ensure accuracy in armament mechanic, still errors may have been included Sometimes, these errors may affect the content or meaning of the given sentence . Total time spent caring for the patient today was 30 minutes. This includes time spent before the visit reviewing the chart, time spent during the visit, and time spent after the visit on documentation [facility] Medical History Heavy menstrual bleeding BRCA negative Surgical History History of loop electrical excision procedure (LEEP) History of tonsillectomy Family History Father BRCA gene mutation positive in male Prostate cancer Melanoma Substance abuse Mother TTP (thrombotic thrombocytopenic purpura) Stroke Mental health disorder Paternal Grandmother Breast cancer Maternal Uncle Lung cancer Social History Housing: House Alcohol intake: current Alcohol intake frequency: a few times a month Patient Tobacco Use Status: Never used Tobacco e-Cigarette/Vaping Use: Never Used Current occupational status: employed Current occupation: [employer]/ left hand dominant Sexual orientation: Straight/Heterosexual Gender identity: Female Cognitive needs: No Hearing needs: No Vision needs: Yes Female Reproductive History Menstrual Age of Menarche: 11 Physical Exam Vital Signs: Last Vital Signs Temp 98.1 F 02/07/24 11:11 Pulse 68 02/07/24 11:11 BP 112/70 02/07/24 11:11 Pulse Ox 98 02/07/24 11:11 Oxygen Delivery Method Room Air 02/07/24 11:11 BMI result Body Mass Index 30.0 Results Reviewed Results Reviewed: [facility] [address] [place] [address] XRay Report Signed Patient: Dena Matos MR#: [id number] : 1980 Acct:[id number] Age/Sex: 44 / F ADM Date: 02/07/24 Loc: HO.HMGCX Attending Dr: Mandie COLVIN Ordering Physician: Mandie Garcia Date of Service: 02/07/24 Procedure(s): XR chest 2V Accession Number(s): [id number] cc: Mandie Garcia; Malika Austin MD~ EXAMINATION: XR CHEST CLINICAL INFORMATION: Cough COMPARISON: None available. TECHNIQUE: 2 views of the chest were obtained. FINDINGS: No significant abnormality is noted involving the heart, lungs, mediastinum, bony thorax or soft tissues. XR/XR chest 2V IMPRESSION: Unremarkable examination. Electronically signed by: King Macias MD 02/07/2024 02:33 PM EDT Dictated By: King Macias MD Signed By: <Electronically signed by King Macias MD in OV> 02/07/24 1433 DD/ 1154 TD/TT: 02/07/24 1206 [place] Filler: TERI Assessment & Plan Assessment & Plan (1) Acute bacterial sinusitis: Code(s): J01.90 - Acute sinusitis, unspecified; B96.89 - Other specified bacterial agents as the cause of diseases classified elsewhere Plan: . (2) Bronchitis: Code(s): J40 - Bronchitis, not specified as acute or chronic (3) Cough: Code(s): R05.9 - Cough, unspecified Qualifiers: Cough type: acute Qualified Code(s): R05.1 - Acute cough Plan . Orders: Orders XR chest 2V Today R05.9 - Cough, unspecified Medications: New benzonatate 100 mg PO TID PRN 30 caps 1RF cough 10 days amoxicillin-pot clavulanate 875-125 mg 1 tab PO BID 14 tabs 0RF 7 days albuterol sulfate 90 mcg/actuation 2 puffs inhalation Q4-6H PRN 8.5 grams 0RF shortness of breath or wheezing 30 days Coding Level of Care Code Est Pt Level 4 (03596) Diagnoses Acute bacterial sinusitis J01.90; B96.89 Bronchitis J40 Acute cough R05.1 Cough type: acute
[2024-02-07 11:11] VITALS: BP 112/70; PULSE 68; TEMP 36.7; O2SAT 98
== END 2024-02-07 12:31 | disposition home or self-care (01) ==
PROVIDERS: PCP Internal Medicine; Visit Provider Nurse Practitioner Family
DX: J01.90 Acute sinusitis, unspecified (principal); B96.89 Other specified bacterial agents as the cause of diseases classified elsewhere; J40 Bronchitis, not specified as acute or chronic; R05.1 Acute cough

== ENCOUNTER → 2024-02-07 11:05 | Outpatient (BNVA) | payer OTHER, SELFPAY | PROVIDERS: PCP Internal Medicine ==

== ENCOUNTER 2024-02-07 11:48 | Outpatient (REF) | payer OTHER, SELFPAY ==
--- NOTE | ~2024-02-07 | XR_ITS ---
EXAMINATION: XR CHEST CLINICAL INFORMATION: Cough COMPARISON: None available. TECHNIQUE: 2 views of the chest were obtained. FINDINGS: No significant abnormality is noted involving the heart, lungs, mediastinum, bony thorax or soft tissues. XR/XR chest 2V IMPRESSION: Unremarkable examination. Electronically signed by: King Macias MD 02/07/2024 02:33 PM EDT RP
== END 2024-02-07 11:49 | disposition home or self-care (01) ==
LOC: HO.HMGCX 11:48
PROVIDERS: PCP Internal Medicine; Visit Provider Nurse Practitioner Family
DX: M47.27 Other spondylosis with radiculopathy, lumbosacral region (principal); R05.9 Cough, unspecified
CPT/HCPCS: 71046; 72100

== ENCOUNTER → 2024-03-08 15:48 | Outpatient (BNV) | payer OTHER, SELFPAY | PROVIDERS: PCP Internal Medicine; Visit Provider Internal Medicine | DX: R92.323 Mammographic fibroglandular density, bilateral breasts (principal); Z80.3 Family history of malignant neoplasm of breast | CPT/HCPCS: 77049 ==

== ENCOUNTER 2024-03-08 15:49 | Outpatient (REF) | payer OTHER, SELFPAY ==
[2024-03-08] MEDS: gadobutroL 10 ML VIAL IVPUSH (16:32)
== END 2024-03-08 15:50 | disposition home or self-care (01) ==
LOC: HO.MRI 15:49
PROVIDERS: PCP Internal Medicine; Visit Provider Surgery
DX: Z91.89 Other specified personal risk factors, not elsewhere classified (principal); Z84.81 Family history of carrier of genetic disease
CPT/HCPCS: 77049; A9585

== ENCOUNTER 2024-03-25 10:08 | Outpatient (AMB) | payer OTHER, SELFPAY ==
--- NOTE | 2024-03-25 10:08 | A.OFFVIS_ITS ---
Intake Visit Reasons: Ultra sound follow up Intake Note: cell # [phone] Research Home Economist: Research Home Economist Present Allergies bismuth subsalicylate [From Pepto-Bismol] Allergy (Intermediate, Verified 02/07/24 11:37) Rash codeine Allergy (Intermediate, Verified 02/07/24 11:37) hives, flushing Sulfa (Sulfonamide Antibiotics) [Sulfa(Sulfonamide Antibiotics)] Allergy (Unknown, Verified 02/07/24 11:37) HIVES TO SULFA DRUGS droperidol [From Inapsine] Adverse Reaction (Unknown, Verified 02/07/24 11:37) AGITATION Is last menstrual period known: Yes Last menstrual period: 03/25/24 HPI Comments Details: Tele binger visit 10:21-10:32. I spent 10 minutes speaking with the patient on the phone plus an additional 5 minutes reviewing the chart and 5 minutes updating the medical record for a total of 20 minutes. Patient presents via phone to discuss: Ultrasound findings. History of fibroids, heavy menstrual bleeding and cramping. Admits bleeding is 3-4 days heavy out up to 9 including spotting. Uses either Tylenol or ibuprofen to help. had a vasectomy. She is not interested in a Mirena IUD. Has lab work pending from her PCP that includes a CBC and TSH. [facility] Medical History (Updated 03/25/24 @ 10:39 by Eboni Dutta CNM) Dysmenorrhea Heavy menstrual bleeding BRCA negative Surgical History History of loop electrical excision procedure (LEEP) History of tonsillectomy Family History Father BRCA gene mutation positive in male Prostate cancer Melanoma Substance abuse Mother TTP (thrombotic thrombocytopenic purpura) Stroke Mental health disorder Paternal Grandmother Breast cancer Maternal Uncle Lung cancer Social History Housing: House Alcohol intake: current Alcohol intake frequency: a few times a month Patient Tobacco Use Status: Never used Tobacco e-Cigarette/Vaping Use: Never Used Current occupational status: employed Current occupation: [employer]/ left hand dominant Sexual orientation: Straight/Heterosexual Gender identity: Female Cognitive needs: No Hearing needs: No Vision needs: Yes Female Reproductive History Menstrual Age of Menarche: 11 Date of last menstrual period: 03/25/24 Review of Systems Const All systems reviewed & are unremarkable except as noted in HPI and below Endo Reports no additional complaints Physical Exam Const General: cooperative, healthy appearing and no acute distress Psych Appearance: well kempt Attitude: cooperative Thought process: Normal thought process present Telehealth Telehealth Telehealth Platform: Float: [place] Location of provider rendering services: practice address Location of patient: other Patient Identification confirmed using: Name, : Yes Telehealth method: video Patient verbally consented to treatment: Yes Patient verbally consented to billing insurance company: Yes Patient informed of any privacy concerns related to visit: Yes Results Reviewed Results Reviewed: [address] [address] Ultrasound Report Signed Patient: Dena Matos MR#: [id number] : 1980 Acct:[id number] Age/Sex: 43 / F ADM Date: 12/29/23 Loc: .[place] Attending Dr: Eboni Dutta CNM Ordering Physician: Eboni Dutta CNM Date of Service: 12/29/23 Procedure(s): US pelvic and transvaginal Accession Number(s): [id number] cc: Eboni Dutta CNM~ EXAMINATION: US PELVIS CLINICAL INFORMATION: Benign neoplasm of connective tissue. Fibroids. COMPARISON: Portions of a previous study 01/02/23 TECHNIQUE: Ultrasound of the pelvis is performed using both transabdominal and transvaginal transducers along with Doppler. Transvaginal imaging is performed due to inadequate visualization transabdominally. FINDINGS: No suspicious abnormality in the expected region of the vagina. Uterus: The uterus is retroverted and and retroflexed. The uterus measures measures 8.0 x 3.8 x 4.6 cm. The estimated cervical length is 2.7 cm. No suspicious abnormality of the cervix The double wall endometrial thickness is 8 mm. The endometrial region is slightly heterogeneous. The serosal contour of the uterus is relatively smooth. The orientation limits assessment. There is a 0.9 cm hypoechoic abnormality within the myometrium in the anterior right side of the uterine body. No suspicious interval change. There is a 0.9 cm hypoechoic myometrial mass along the ventral left side of the uterine body. No suspicious interval change. Adnexa: Both ovaries are visualized. There is normal color flow to the adnexa. There is no ovarian torsion. There is no pelvic ascites or fluid collection. Right ovary measures 3.7 x 1.9 x 2.1 cm. The estimated right ovarian volume is 8 mL. Some small probably physiologic cyst did not require any specific imaging follow-up Left ovary measures 1.9 x 1.9 x 1.2 cm. The estimated left ovarian volume is 2 mL. No suspicious left adnexal mass or collection. Minimal amount of nonspecific free pelvic fluid. There is color signal within the right ovary. There is color signal within the left ovary. US/US pelvic and transvaginal IMPRESSION: There are small hypoechoic myometrial masses measuring slightly less than 1 cm. Statistically these represent uterine fibroids. No suspicious interval change Electronically signed by: Tyrone Lopez MD 12/29/2023 06:05 PM EDT Dictated By: Tyrone Lopez MD Signed By: <Electronically signed by Tyrone Lopez MD in OV> 12/29/23 1805 DD/ 1100 TD/TT: 12/29/23 1121 Regulatory Affairs Portfolio Leader: Assessment & Plan Assessment & Plan (1) Heavy menstrual bleeding: Code(s): N92.0 - Excessive and frequent menstruation with regular cycle Category: Medical Qualifiers: Menorrhagia type: with regular cycle Qualified Code(s): N92.0 - Excessive and frequent menstruation with regular cycle (2) Dysmenorrhea: Code(s): N94.6 - Dysmenorrhea, unspecified Category: Medical (3) Encounter to discuss test results: Code(s): Z71.2 - Person consulting for explanation of examination or test findings Plan Discussed: US finding: IMPRESSION: There are small hypoechoic myometrial masses measuring slightly less than 1 cm. Statistically these represent uterine fibroids. No suspicious interval change. Monitor menstrual cycles, report any unscheduled bleeding, bleeding episodes <24 days apart or heavy/prolonged menstrual bleeding. Call the office for a follow up for any concerns. Use of Motrin for menstrual cramping-ibuprofen 3 tablets every 6 hours with food with the onset of pain or bleeding. Complete blood work, follow up sooner than annual in August of 2024 with any concerns. Consider cycle control options other a Mirena IUD, and uterine ablation. The patient expressed understanding and agreement with the plan of care. All of her questions and concerns were addressed to the best of my ability. This note is constructed using voice recognition software. While every effort has been made to ensure accuracy, landfill attendant errors may have been included. Coding Level of Care Code Tele Est Pt Level 3 (37930) Diagnoses Menorrhagia with regular cycle N92.0 Menorrhagia type: with regular cycle Dysmenorrhea N94.6 Encounter to discuss test results Z71.2
== END 2024-03-25 11:15 | disposition home or self-care (01) ==
LOC: HO.HWS 10:08
PROVIDERS: PCP Internal Medicine; Visit Provider Advanced Practice Midwife
DX: N92.0 Excessive and frequent menstruation with regular cycle (principal); N94.6 Dysmenorrhea, unspecified; Z71.2 Person consulting for explanation of examination or test findings
CPT/HCPCS: 99213

== ENCOUNTER 2024-05-05 13:50 | Outpatient (AMB) | payer OTHER, SELFPAY ==
--- NOTE | 2024-05-05 13:58 | A.OFFVIS_ITS ---
Vital Signs 05/05/24 14:10 BP 100/60 Intake Visit Reasons: pain during/after intercourse Irrigation Supervisor: Irrigation Supervisor Present (Cheryle) Allergies bismuth subsalicylate [From Pepto-Bismol] Allergy (Intermediate, Verified 04/08 12/30 13:58) Rash codeine Allergy (Intermediate, Verified 05/05/24 13:58) hives, flushing Sulfa (Sulfonamide Antibiotics) [Sulfa(Sulfonamide Antibiotics)] Allergy (Unknown, Verified 05/05/24 13:58) HIVES TO SULFA DRUGS droperidol [From Inapsine] Adverse Reaction (Unknown, Verified 05/05/24 13:58) AGITATION Is last menstrual period known: Yes Last menstrual period: 04/20/24 HPI Comments Details: Patient is here today with concerns of 2 episodes of severe dyspareunia. First episode she had left-sided pelvic aching prior to intimacy, felt it might have been an ovarian cyst that ruptured. She denies any irregular bleeding patterns. New urinary symptoms, vaginal discharge, odors or other changes. Same monogamous partner. [facility] Medical History Unspecified dyspareunia Dysmenorrhea Heavy menstrual bleeding BRCA negative Surgical History History of loop electrical excision procedure (LEEP) History of tonsillectomy Family History Father BRCA gene mutation positive in male Prostate cancer Melanoma Substance abuse Mother TTP (thrombotic thrombocytopenic purpura) Stroke Mental health disorder Paternal Grandmother Breast cancer Maternal Uncle Lung cancer Social History Housing: House Alcohol intake: current Alcohol intake frequency: a few times a month Patient Tobacco Use Status: Never used Tobacco e-Cigarette/Vaping Use: Never Used Current occupational status: employed Current occupation: [employer]/ left hand dominant Sexual orientation: Straight/Heterosexual Gender identity: Female Cognitive needs: No Hearing needs: No Vision needs: Yes Female Reproductive History Menstrual Age of Menarche: 11 Date of last menstrual period: 04/20/24 Review of Systems Const All systems reviewed & are unremarkable except as noted in HPI and below Physical Exam Vital Signs: Last Vital Signs BP 100/60 05/05/24 14:10 Const General: cooperative, healthy appearing and no acute distress Orientation/consciousness: patient oriented x3 GI Inspection: Yes normal to inspection Palpation (GI): Soft to palpation and Other GI palpation findings present (Nontender) Rectal Exam - Female: visual inspection normal General: Yes bladder normal to palpation External Female Exam: normal appearance of the urethra Speculum Exam - Vagina: normal appearance of the vagina, normal palpation and normal vaginal discharge Speculum Exam - Cervix: normal appearance of the cervix and normal palpation Bimanual exam- vagina & uterus: normal bimanual exam, normal palpation, uterine size normal, bladder normal to palpation, normal palpation, uterine shape normal and non-tender Bimanual Exam- Adnexa, other: normal adnexae and tender (Slight to the left side) on the left Neuro General: patient oriented x3 Results AMB Test Urine AMB Test Urine Negative Last Edit by KIMBERLY Beltre on 05/05/24 14:15 AMB Urinalysis, Automated UA Leukoctes 0 Tatiana/uL Last Edit by Hawa Redman Conchis on 05/05/24 14:15 UA Nitrite Negative Last Edit by KIMBERLY Beltre on 05/05/24 14:15 UA Urobilinogen 0 mg/dL Last Edit by Hawa Redman Conchis on 05/05/24 14:1 5 UA Protein 0 mg/dL Last Edit by Hawa Redman Conchis on 05/05/24 14:15 UA pH 6.0 Last Edit by Hawa Redman Conchis on 05/05/24 14:15 UA Blood 0 Hair/uL Last Edit by Hawa Redman [facility] on 05/05/24 14:15 UA Specific [place] 1.015 Last Edit by KIMBERLY Beltre on 05/05/24 14:15 UA Ketone Negative Last Edit by KIMBERLY Beltre on 05/05/24 14:15 UA Bilirubin 0 mg/dL Last Edit by Hawa Redman Conchis on 05/05/24 14:15 UA Glucose 0 mg/dL Last Edit by KIMBERLY Beltre on 05/05/24 14:15 Results Reviewed Results Reviewed: Laboratory Last Values Urine pH (Auto) 6.0 05/05/24 14:10 Specific [place] (Auto) 1.015 05/05/24 14:10 Urine Protein (Auto) 0 mg/dL 05/05/24 14:10 Glucose (UA)(Auto) 0 mg/dL 05/05/24 14:10 Urine Ketones (Auto) Negative 05/05/24 14:10 Urine Blood (Auto) 0 Hair/uL 05/05/24 14:10 Urine Nitrite (Auto) Negative 05/05/24 14:10 Urine Bilirubin (Auto) 0 mg/dL 05/05/24 14:10 Urine Urobilinogen (Auto) 0 mg/dL 05/05/24 14:10 Leukocyte Esterase (Auto) 0 Tatiana/uL 05/05/24 14:10 Tst Clinic Negative 05/05/24 14:10 Assessment & Plan Assessment & Plan (1) Unspecified dyspareunia: Code(s): N94.10 - Unspecified dyspareunia Category: Medical Plan GC chlamydia and BV panel obtained, urine dip is negative, UPT is negative. Discuss plan-official ultrasound planned, follow up pending results. Avoid intimacy if having discomfort, report any increase in pain or other changes or concerns. The patient expressed understanding and agreement with the plan of care. All of her questions and concerns were addressed to the best of my ability. This note is constructed using voice recognition software. While every effort has been made to ensure accuracy, computer numerical control machinist errors may have been included. Orders: Orders Bacterial Vaginosis Panel Today N94.10 - Unspecified dyspareunia AMB HCG Urine Test Today N94.10 - Unspecified dyspareunia, R10.2 - Pelvic and perineal pain AMB Urinalysis Automated Today R10.2 - Pelvic and perineal pain US pelvic and transvaginal Today N94.10 - Unspecified dyspareunia CT NG by PCR Today N94.10 - Unspecified dyspareunia Coding Level of Care Code Est Pt Level 3 (66858) Diagnoses Unspecified dyspareunia N94.10
[2024-05-05 14:10] VITALS: BP 100/60
== END 2024-05-05 14:39 | disposition home or self-care (01) ==
LOC: HO.HWS 13:50
PROVIDERS: PCP Internal Medicine; Visit Provider Advanced Practice Midwife
DX: N94.10 Unspecified dyspareunia (principal); R10.2 Pelvic and perineal pain
CPT/HCPCS: 99213

== ENCOUNTER 2024-05-05 13:50 | Outpatient (REF) | payer OTHER, SELFPAY ==
[2024-05-06 11:53] LABS: Bacterial Vaginosis PCR NEGATIVE (Negative); Candida Group PCR NOT DETECTED (Not Detect); Candida glab krusei PCR NOT DETECTED (Not Detect); Trichomonas vaginalis PCR NOT DETECTED (Not Detect)
[2024-05-06 17:19] LABS: CT PCR NOT DETECTED (Not Detect.); NG PCR NOT DETECTED (Not Detect.)
== END 2024-05-05 13:51 | disposition home or self-care (01) ==
LOC: HO.LNP 13:50
PROVIDERS: Visit Provider Advanced Practice Midwife
DX: N94.10 Unspecified dyspareunia (principal); R10.2 Pelvic and perineal pain
CPT/HCPCS: 81515; 87491; 87591

== ENCOUNTER 2024-05-05 13:50 | Outpatient (REF) | payer OTHER, SELFPAY | END 2024-05-05 13:51 | disposition home or self-care (01) | LOC: HO.LAB 13:50 | PROVIDERS: PCP Internal Medicine; Visit Provider Advanced Practice Midwife | DX: N94.10 Unspecified dyspareunia (principal); N94.6 Dysmenorrhea, unspecified; N92.0 Excessive and frequent menstruation with regular cycle; Z32.02 Encounter for pregnancy test, result negative | CPT/HCPCS: 81003; 81025 ==

== ENCOUNTER 2024-05-05 14:26 | Outpatient (REF) | payer OTHER, SELFPAY | END 2024-05-05 14:27 | disposition home or self-care (01) | LOC: HO.LNP 14:26 | PROVIDERS: Visit Provider Advanced Practice Midwife | DX: Z13.89 Encounter for screening for other disorder (principal) ==

== ENCOUNTER → 2024-05-13 13:48 | Outpatient (BNV) | payer OTHER, SELFPAY | PROVIDERS: PCP Internal Medicine; Visit Provider Radiology Diagnostic Radiology | DX: D25.9 Leiomyoma of uterus, unspecified (principal) | CPT/HCPCS: 76830; 76856 ==

== ENCOUNTER 2024-06-15 13:27 | Outpatient (AMB) | payer OTHER, SELFPAY ==
--- NOTE | 2024-06-15 13:33 | A.OFFVIS_ITS ---
Vital Signs 06/15/24 13:39 Height 5 ft 4 in Weight 165 lb BMI 28.3 BP 113/60 Blood Pressure Location Lt brachial Position Sitting Pulse 71 Intake Visit Reasons: 6 month breast exam Intake Note: Patient is seen in office for 6 month follow up visit, breast exam. Pt c/o: denies any concerns or changes at the time of visit MRI:03/08/24 mm:01/08/24 Teacher'S Aide Required: No Healthcare Social Worker: Healthcare Social Worker Present Accompanied by: Self / Same As Patient Allergies bismuth subsalicylate [From Pepto-Bismol] Allergy (Intermediate, Verified 06/15/24 13:39) Rash codeine Allergy (Intermediate, Verified 06/15/24 13:39) hives, flushing Sulfa (Sulfonamide Antibiotics) [Sulfa(Sulfonamide Antibiotics)] Allergy (Unknown, Verified 06/15/24 13:39) HIVES TO SULFA DRUGS droperidol [From Inapsine] Adverse Reaction (Unknown, Verified 06/15/24 13:39) AGITATION Medication List - Last Reconciled 06/15/24 by Silvano Overton MD cyclobenzaprine 10 mg PO BEDTIME PRN whjnofagxsoo-Ag-dxrk-minerals tabs PO pen needle, diabetic (BD Ultra-Fine Sherry Pen Needle) once weekly HPI Comments Details: 44-year-old female patient returning for a routine high risk breast examination. She has a family history of BRCA2 mutation in her father. Her father was diagnosed with metastatic prostate cancer and subsequent underwent radiation therapy to the spine. He also has a history of metastatic melanoma. Paternal grandmother was diagnosed with breast cancer the age of 65 and maternal grandmother was treated for lung cancer. Patient underwent genetic testing which was negative for BRCA mutation however 2 variants of unknown significance were identified. Her Tyrer-Cuzick remaining lifetime risk of breast cancer was calculated at 34.8% placing her high risk for breast cancer. She was started on the high risk protocol including twice yearly clinical breast examinations, yearly mammogram alternating in 6 months with yearly breast MRIs. She underwent breast MRI on 03/08/2024 which revealed no MR evidence of malignancy (BI-RADS 2 bilaterally). Her most recent mammogram dated 01/08/2024 revealed no mammographic evidence of malignancy (BI-RADS 2). She feels well and denies any ongoing breast symptoms at this time. PFSH Medical History Unspecified dyspareunia Dysmenorrhea Heavy menstrual bleeding BRCA negative Surgical History History of loop electrical excision procedure (LEEP) History of tonsillectomy Family History Father BRCA gene mutation positive in male Prostate cancer Melanoma Substance abuse Mother TTP (thrombotic thrombocytopenic purpura) Stroke Mental health disorder Paternal Grandmother Breast cancer Maternal Uncle Lung cancer Social History Housing: House Alcohol intake: current Alcohol intake frequency: a few times a month Patient Tobacco Use Status: Never used Tobacco e-Cigarette/Vaping Use: Never Used Current occupational status: employed Current occupation: [employer]/ left hand dominant Sexual orientation: Straight/Heterosexual Gender identity: Female Cognitive needs: No Hearing needs: No Vision needs: Yes Female Reproductive History Menstrual Age of Menarche: 11 Review of Systems Const All systems reviewed & are unremarkable except as noted in HPI and below Physical Exam Vital Signs: Last Vital Signs Pulse 71 06/15/24 13:39 BP 113/60 06/15/24 13:39 BMI result Body Mass Index 28.3 Const General: no acute distress and well developed Nutritional Appearance: well nourished Orientation/consciousness: patient oriented x3 Limitations: no limitations HEENT Head: Yes normocephalic and Yes atraumatic Eyes Sclerae: sclerae normal EOM: EOMs intact bilaterally Neck Neck: Yes no lymphadenopathy Chest Other: Left breast: No skin change, no nipple retraction, no nipple discharge, no palpable mass, no enlarged lymph nodes. Right breast: No skin change, no nipple retraction, no nipple discharge, no palpable mass, no enlarged lymph nodes Resp Effort & Inspection: normal respiratory effort and no cough Skin Other: Warm and dry, no rash General skin exam: no rashes or lesions noted Neuro General: patient oriented x3 Extrem General: Yes no clubbing, cyanosis or edema Assessment & Plan Assessment & Plan (1) Family history of BRCA gene mutation: Code(s): Z84.81 - Family history of carrier of genetic disease Category: Medical (2) At high risk for breast cancer: Code(s): Z91.89 - Other specified personal risk factors, not elsewhere classified Category: Medical Plan 44-year-old female patient with strong family history of breast cancer found to have an elevated Tyrer-Cuzick risk a 34.8% lifetime remaining risk of breast cancer. She underwent an ultrasound-guided core biopsy which revealed benign breast tissue. Breast MRI of 03/08/2024 revealed no MR evidence of malignancy in either breast (BI-RADS 2). Mammogram dated 01/08/2024 revealed no mammographic evidence of malignancy (BI-RADS 2). Examination today revealed no suspicious findings in either breast. She should follow up in 6 months for routine breast examination, sooner p.r.n.. She will obtain a breast MRI in January 2025 and mammogram in March 2025. Coding Level of Care Code Est Pt Level 3 (10061) Complex EM visit Add On G2211 Diagnoses Family history of BRCA gene mutation Z84.81 At high risk for breast cancer Z91.89
[2024-06-15 13:39] VITALS: BP 113/60; PULSE 71; BMI 28.3
== END 2024-06-15 13:50 | disposition home or self-care (01) ==
LOC: HO.HGS 13:29
PROVIDERS: PCP Internal Medicine; Visit Provider Surgery
DX: Z84.81 Family history of carrier of genetic disease (principal); Z91.89 Other specified personal risk factors, not elsewhere classified
CPT/HCPCS: 99213

== ENCOUNTER 2024-06-30 09:29 | Outpatient (AMB) | payer OTHER, SELFPAY ==
--- NOTE | 2024-06-30 09:32 | MHC.OFFVIS ---
Intake Visit Reasons: Us follow up Intake Note: cell #[phone] Learning Disabilities Resource Teacher: Learning Disabilities Resource Teacher Present Allergies bismuth subsalicylate [From Pepto-Bismol] Allergy (Intermediate, Verified 06/15/24 13:39) Rash codeine Allergy (Intermediate, Verified 06/15/24 13:39) hives, flushing Sulfa (Sulfonamide Antibiotics) [Sulfa(Sulfonamide Antibiotics)] Allergy (Unknown, Verified 06/15/24 13:39) HIVES TO SULFA DRUGS droperidol [From Inapsine] Adverse Reaction (Unknown, Verified 06/15/24 13:39) AGITATION Is last menstrual period known: Yes HPI Comments Details: Tele Health Visit Total time I personally spent on visit and management today: 16 minutes. Time spent included review of pertinent office notes in the electronic health record; review of laboratory and imaging results; review of personal family medical history; discussing diagnosis and plan of care with the patient; documenting the encounter in the EMR. Patient presents to discuss: Ultrasound follow up. History of severe dyspareunia, has resolved since her last visit. She reports her cycles are about 3-1/2 weeks apart. [facility] Medical History Hemorrhagic cyst of ovary Unspecified dyspareunia Dysmenorrhea Heavy menstrual bleeding BRCA negative Surgical History History of loop electrical excision procedure (LEEP) History of tonsillectomy Family History Father BRCA gene mutation positive in male Prostate cancer Melanoma Substance abuse Mother TTP (thrombotic thrombocytopenic purpura) Stroke Mental health disorder Paternal Grandmother Breast cancer Maternal Uncle Lung cancer Social History Housing: House Alcohol intake: current Alcohol intake frequency: a few times a month Patient Tobacco Use Status: Never used Tobacco e-Cigarette/Vaping Use: Never Used Current occupational status: employed 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 Sexual orientation: Straight/Heterosexual Gender identity: Female Cognitive needs: No Hearing needs: No Vision needs: Yes Female Reproductive History Menstrual Age of Menarche: 11 Review of Systems Const All systems reviewed & are unremarkable except as noted in HPI and below Endo Reports no additional complaints Physical Exam Const General: cooperative, healthy appearing and no acute distress Psych Appearance: well kempt Attitude: cooperative Thought process: Normal thought process present Telehealth Telehealth Telehealth Platform: [employer] Location of provider rendering services: practice address Location of patient: other Patient Identification confirmed using: Name, : Yes Telehealth method: video Patient verbally consented to treatment: Yes Patient verbally consented to billing insurance company: Yes Patient informed of any privacy concerns related to visit: Yes Results Reviewed Results Reviewed: [address] [address] Ultrasound Report Signed Patient: Dena Matos MR#: [id number] : 1980 Acct:[id number] Age/Sex: 44 / F ADM Date: 05/13/24 Loc: HO.US Attending Dr: Eboni Dutta CNM Ordering Physician: Eboni Dutta CNM Date of Service: 05/13/24 Procedure(s): US pelvic and transvaginal Accession Number(s): [id number] cc: Eboni Dutta CNM; Malika Austin MD~ EXAMINATION: US PELVIS TRANSABDOMINAL AND TRANSVAGINAL HISTORY: N94.10 - Unspecified dyspareunia COMPARISON: Comparison is made with the prior examination dated 12/29/2023. TECHNIQUE: Transabdominal and endovaginal real-time 2D mcclellan-scale ultrasound was performed. Color Doppler was also performed. FINDINGS: Uterus: The uterus is normal in size, measuring 8.6 x 4.8 x 5.4 cm. Myometrium has a heterogeneous echotexture. Multiple fibroids are noted including an 8 x 4 x 6 mm anterior fibroid not seen previously, and 9 x 8 x 8 mm fibroid of the left uterine body (previously 9 x 6 x 6 mm), a 13 x 10 x 11 mm fibroid of the left uterine body (previously 9 x 5 x 8 mm), and a 5 x 4 x 4 mm fibroid of the right uterine body, not seen previously. Endometrium: The endometrial stripe measures 8 mm in thickness. Right ovary: The right ovary measures 3.4 x 3.0 x 2.3 cm. There is a 2.1 x 2.1 x 1.8 cm cyst with an echogenic mural nodule, which likely represents a hemorrhagic cyst. Left ovary: The left ovary measures 3.3 x 3.7 x 3.0 cm. There is a 2.4 x 2.3 x 2.7 cm cystic structure with low-level internal echoes which likely represents a hemorrhagic cyst. Color Doppler analysis of the bilateral ovarian arteries and veins are normal. Pelvic fluid: none. US/US pelvic and transvaginal IMPRESSION: 1. Fibroid uterus as described. 2. Probable bilateral ovarian hemorrhagic cysts as described. A follow-up examination in 6 weeks, at a different time in the patient's menstrual cycle, is recommended. Electronically signed by: Leoncio Varghese MD 05/13/2024 02:43 PM [facility] Dictated By: Leoncio Varghese MD Signed By: <Electronically signed by Leoncio Varghese MD in OV> 05/13/24 1443 DD/ 1349 TD/TT: 05/13/24 1406 Automotive Accessory Installer: Assessment & Plan Assessment & Plan (1) Fibroid: Code(s): D21.9 - Benign neoplasm of connective and other soft tissue, unspecified Category: Medical Plan: Discussed ultrasound findings-fibroids, plan six-month follow up. Expectant management follow up in 6 months, then yearly for stability. Patient agrees to proceed with expectant management. Report any AUB, pelvic pressure, bloating, or pain. Referral to MD if indicated for level of care if indicated. (2) Hemorrhagic cyst of ovary: Code(s): N83.209 - Unspecified ovarian cyst, unspecified side Category: Medical Plan Plan follow up ultrasound evaluation of bilateral ovaries hemorrhagic cyst. Report any pelvic pain. Monitor menstrual cycles report any short interval spacing, heavier prolonged bleeding. The patient expressed understanding and agreement with the plan of care. All of her questions and concerns were addressed to the best of my ability. This note is constructed using voice recognition software. While every effort has been made to ensure accuracy, administrative staff supervisor errors may have been included. Orders: Orders US pelvic and transvaginal Today N83.209 - Unspecified ovarian cyst, unspecified side Coding Level of Care Code Tele Est Pt Level 3 (74280) Diagnoses Fibroid D21.9 Hemorrhagic cyst of ovary N83.209
== END 2024-06-30 16:24 | disposition home or self-care (01) ==
PROVIDERS: PCP Internal Medicine; Visit Provider Advanced Practice Midwife
DX: D21.9 Benign neoplasm of connective and other soft tissue, unspecified (principal); N83.209 Unspecified ovarian cyst, unspecified side
CPT/HCPCS: 99213

== ENCOUNTER 2024-10-11 09:08 | Outpatient (REF) | payer OTHER, SELFPAY ==
--- NOTE | ~2024-10-11 | US_ITS ---
EXAMINATION: US RETROPERITONEUM HISTORY: R31.9 - Hematuria, unspecified TECHNIQUE: Real-time grayscale ultrasound imaging of the kidneys was performed and images were reviewed. COMPARISON: There are no prior studies available for comparison. FINDINGS: Right kidney: The right kidney measures 10.9 x 4.4 x 5.8 cm. Renal parenchymal echotexture and thickness are normal. There are no masses. There is no hydronephrosis or renal calculi. Left Kidney: The left kidney measures 12.1 x 5.9 x 5.2 cm. Renal parenchymal echotexture and thickness are normal. There are no masses. There is no hydronephrosis or renal calculi. The urinary bladder is unremarkable. Bilateral ureteral jets are identified. Before voiding, the urinary bladder measured 12.2 x 8.5 x 9.8 cm, for an estimated volume of 533 mL. After voiding, the urinary bladder measured 5.2 x 2.1 x 1.7 cm, for an estimated volume of 9.5 mL. US/US retroperitoneal comp IMPRESSION: Unremarkable retroperitoneal ultrasound. Post void bladder residual of 9.5 mL. Electronically signed by: Leoncio Varghese MD 10/11/2024 11:07 AM EDT
--- NOTE | ~2024-10-11 | US_ITS ---
EXAMINATION: US PELVIS CLINICAL INFORMATION: Ovarian cyst. COMPARISON: 05/13/24, 12/29/2023. TECHNIQUE: Ultrasound of the pelvis is performed using both transabdominal and transvaginal transducers along with Doppler. Transvaginal imaging is performed due to inadequate visualization transabdominally. FINDINGS: Uterus: The uterus is retroverted and retroflexed, and measures 9.1 x 3.8 x 5.9 cm. Normal appearing cervix. The double wall endometrial thickness is 0.8 mm. It is uniform. The uterus is smooth in contour and has normal myometrial echogenicity. There are 3 small fibroid tumors: There is a ventral fundal intramural fibroid measuring 1.2 x 0.9 x 1.0 cm (previously the same). There is a left cornual intramural fibroid measuring 1.1 x 0.9 x 0.9 cm, (previously 0.9 x 0.8 x 0.8 cm). There is a tiny left mid uterine segment intramural fibroid measuring 0.7 x 0.4 x 0.6 cm (unchanged). Adnexa: Both ovaries are visualized. There is normal color flow to the adnexa. There is no ovarian torsion. There is no pelvic ascites or fluid collection. There are no adnexal masses. Right ovary measures 4.1 x 2.1 x 2.0 cm. Volume = 8.8 mL. There are 2 mildly complex cysts present, the larger appears slightly crenated measuring 2.0 x 2.0 x 1.6 cm, and the smaller measuring 1.5 x 1.2 x 1.1 cm. No internal flow but there is flow peripherally. These are consistent with benign minimally complicated follicular cysts. Left ovary measures 2.2 x 1.5 x 2.0 cm. Volume = 3.4 mL. Normal sonographic appearance. US/US pelvic and transvaginal IMPRESSION: 1. There are 3 essentially stable small uterine fibroids as detailed. 2. Normal uniform endometrium at 8 mm thickness. 3. There are are 2 minimally complex likely follicular cysts in the left ovary, the larger measuring 2.0 x 2.0 x 1.6 cm with a slightly crenated appearance. Electronically signed by: Peter Shi MD 10/11/2024 11:14 AM EDT
[2024-10-11 14:24] LABS: Appearance Urine Clear; Glucose Urine UA Negative (Negative); PH 6.5 (5.0-9.0); Specific Gravity - Urine 1.015 (1.005-1.025); UMIC TRIGGER UACC YES
[2024-10-11 14:29] LABS: UACC Culture Trigger YES
== END 2024-10-11 09:09 | disposition home or self-care (01) ==
LOC: HO.US 09:08
PROVIDERS: PCP Internal Medicine; Visit Provider Internal Medicine
DX: D25.1 Intramural leiomyoma of uterus (principal); N83.02 Follicular cyst of left ovary; R31.9 Hematuria, unspecified
CPT/HCPCS: 76770; 76830; 76856; 81001; 81003; 87086; 87088; 87186

== ENCOUNTER → 2024-10-11 09:15 | Outpatient (BNV) | payer OTHER, SELFPAY | PROVIDERS: Visit Provider Radiology Diagnostic Radiology | DX: N39.43 Post-void dribbling (principal); D25.9 Leiomyoma of uterus, unspecified; N83.02 Follicular cyst of left ovary | CPT/HCPCS: 76770; 76830; 76856 ==

== ENCOUNTER 2024-10-20 17:04 | Outpatient (REF) | payer OTHER, SELFPAY ==
--- NOTE | ~2024-10-20 | MR_ITS ---
EXAM: MRI Lumbar Spine without Contrast. TECHNIQUE: Multiplanar multisequence MR imaging was performed through the lumbar spine without contrast. INDICATION: M47.27 - Other spondylosis with radiculopathy, lumbosacral region PRIOR: X-ray on February 07, 2024 FINDINGS: 5 non-rib bearing lumbar segments are present on x-ray. Marrow and end-plates: Modic 2 changes are present at L4-5 and L5-S1. Centrally within L3, there is a hyperintense lesion on T1 and T2 sequences consistent with a benign vertebral hemangioma. There is a similar lesion in posterior left L1 vertebral body Alignment: There is subtle grade 1 retrolisthesis at L4-5 and L5-S1. Soft tissues: Paraspinal soft tissues and major vascular structures are unremarkable. Conus: The termination of conus medullaris is within normal limits at the level of L1-2 T12-L1: There is no disc bulge, herniation, spinal stenosis, or foraminal narrowing. L1-L2: There is no disc bulge, herniation, spinal stenosis, or foraminal narrowing. L2-L3: There is minimal disc bulge or protrusion in the left neural foramen without spinal stenosis or foraminal narrowing. L3-L4: There is disc desiccation with circumferential broad-based disc bulge and mild facet degeneration and ligamentum flavum thickening does not narrowing the spinal canal or neural foramina. L4-L5: Disc desiccation, loss disc height, and circumferential broad-based disc bulge with a right central disc protrusion that encroaches on the right L5 nerve root in the subarticular zone. There is ligamentum flavum thickening and mild facet hypertrophy. There is mild right foraminal narrowing in the left narrowing. L5-S1: There is moderate to severe loss of disc height and circumferential broad-based disc bulge with annular fissuring. There is no spinal stenosis. There is mild right subarticular zone narrowing and mild foraminal narrowing. MR/MR lumbar spine wo con IMPRESSION: L4-L5: A right central disc herniation encroaches on the right L5 nerve root in the subarticular zone. Electronically signed by: Bartolome Quinones MD 10/20/2024 05:54 PM EDT
== END 2024-10-20 17:05 | disposition home or self-care (01) ==
LOC: HO.MRI 17:04
PROVIDERS: Visit Provider Internal Medicine
DX: M47.27 Other spondylosis with radiculopathy, lumbosacral region (principal); M54.50 Low back pain, unspecified
CPT/HCPCS: 72148

== ENCOUNTER → 2024-10-20 17:10 | Outpatient (BNV) | payer OTHER, SELFPAY | PROVIDERS: Visit Provider Radiology Diagnostic Radiology | DX: M51.16 Intervertebral disc disorders with radiculopathy, lumbar region (principal) | CPT/HCPCS: 72148 ==

== ENCOUNTER 2024-10-27 12:39 | Outpatient (AMB) | payer OTHER, SELFPAY ==
--- NOTE | 2024-10-27 12:28 | MHC.OFFVIS ---
Intake Visit Reasons: TV ultra sound follow up Communications Station Manager: Communications Station Manager Present Allergies bismuth subsalicylate (From Pepto-Bismol) Allergy (Intermediate, Verified 06/15/24 13:39) Rash codeine Allergy (Intermediate, Verified 06/15/24 13:39) hives, flushing Sulfa (Sulfonamide Antibiotics) (Sulfa(Sulfonamide Antibiotics)) Allergy (Unknown, Verified 06/15/24 13:39) HIVES TO SULFA DRUGS droperidol (From Inapsine) Adverse Reaction (Unknown, Verified 06/15/24 13:39) AGITATION Is last menstrual period known: Yes HPI Comments Details: Tele Health Visit Total time I personally spent on visit and management today: 14 minutes. Time spent included review of pertinent office notes in the electronic health record; review of laboratory and imaging results; review of personal family medical history; discussing diagnosis and plan of care with the patient; documenting the encounter in the EMR. Patient presents to discuss: Follow up pelvic ultrasound, history of fibroids and ovarian cyst. She reports not having any pelvic pain menstrual irregularities or any other concerns. [facility] Medical History Hemorrhagic cyst of ovary Unspecified dyspareunia Dysmenorrhea Heavy menstrual bleeding BRCA negative Surgical History History of loop electrical excision procedure (LEEP) History of tonsillectomy Family History Father BRCA gene mutation positive in male Prostate cancer Melanoma Substance abuse Mother TTP (thrombotic thrombocytopenic purpura) Stroke Mental health disorder Paternal Grandmother Breast cancer Maternal Uncle Lung cancer Social History Housing: House Alcohol intake: current Alcohol intake frequency: a few times a month Patient Tobacco Use Status: Never used Tobacco e-Cigarette/Vaping Use: Never Used Current occupational status: employed Current occupation: [id number]/ left hand dominant Sexual orientation: Straight/Heterosexual Gender identity: Female Cognitive needs: No Hearing needs: No Vision needs: Yes Female Reproductive History Menstrual Age of Menarche: 11 Review of Systems Const All systems reviewed & are unremarkable except as noted in HPI and below Endo Reports no additional complaints Physical Exam Const General: cooperative, healthy appearing and no acute distress Psych Appearance: well kempt Attitude: cooperative Thought process: Normal thought process present Telehealth Telehealth Telehealth Platform: [employer] Location of provider rendering services: practice address Location of patient: other Patient Identification confirmed using: Name, : Yes Telehealth method: video Patient verbally consented to treatment: Yes Patient verbally consented to billing insurance company: Yes Patient informed of any privacy concerns related to visit: Yes Results Reviewed Results Reviewed: [address] [address] Ultrasound Report Signed Patient: Dena Matos MR#: [id number] : 1980 Acct:[id number] Age/Sex: 44 / F ADM Date: 10/11/24 Loc: HO.US Attending Dr: Malika Austin MD Ordering Physician: Eboni Dutta CNM Date of Service: 10/11/24 Procedure(s): US pelvic and transvaginal Accession Number(s): [id number] cc: Eboni Dutta CNM~ EXAMINATION: US PELVIS CLINICAL INFORMATION: Ovarian cyst. COMPARISON: 05/13/24, 12/29/2023. TECHNIQUE: Ultrasound of the pelvis is performed using both transabdominal and transvaginal transducers along with Doppler. Transvaginal imaging is performed due to inadequate visualization transabdominally. FINDINGS: Uterus: The uterus is retroverted and retroflexed, and measures 9.1 x 3.8 x 5.9 cm. Normal appearing cervix. The double wall endometrial thickness is 0.8 mm. It is uniform. The uterus is smooth in contour and has normal myometrial echogenicity. There are 3 small fibroid tumors: There is a ventral fundal intramural fibroid measuring 1.2 x 0.9 x 1.0 cm (previously the same). There is a left cornual intramural fibroid measuring 1.1 x 0.9 x 0.9 cm, (previously 0.9 x 0.8 x 0.8 cm). There is a tiny left mid uterine segment intramural fibroid measuring 0.7 x 0.4 x 0.6 cm (unchanged). Adnexa: Both ovaries are visualized. There is normal color flow to the adnexa. There is no ovarian torsion. There is no pelvic ascites or fluid collection. There are no adnexal masses. Right ovary measures 4.1 x 2.1 x 2.0 cm. Volume = 8.8 mL. There are 2 mildly complex cysts present, the larger appears slightly crenated measuring 2.0 x 2.0 x 1.6 cm, and the smaller measuring 1.5 x 1.2 x 1.1 cm. No internal flow but there is flow peripherally. These are consistent with benign minimally complicated follicular cysts. Left ovary measures 2.2 x 1.5 x 2.0 cm. Volume = 3.4 mL. Normal sonographic appearance. US/US pelvic and transvaginal IMPRESSION: 1. There are 3 essentially stable small uterine fibroids as detailed. 2. Normal uniform endometrium at 8 mm thickness. 3. There are are 2 minimally complex likely follicular cysts in the left ovary, the larger measuring 2.0 x 2.0 x 1.6 cm with a slightly crenated appearance. Electronically signed by: Peter Shi MD 10/11/2024 11:14 AM EDT Dictated By: Peter Shi MD Signed By: <Electronically signed by Peter Shi MD in OV> 10/11/24 1114 DD/ 0922 TD/TT: 10/11/24 0940 Bill Collector: Assessment & Plan Assessment & Plan (1) Encounter to discuss test results: Code(s): Z71.2 - Person consulting for explanation of examination or test findings Plan: Report any AUB, pelvic pressure, bloating, or pain. Keep follow up annual exam in December 2024. The patient expressed understanding and agreement with the plan of care. All of her questions and concerns were addressed to the best of my ability. Plan Discussed: Ultrasound findings- IMPRESSION: 1. There are 3 essentially stable small uterine fibroids as detailed. 2. Normal uniform endometrium at 8 mm thickness. 3. There are are 2 minimally complex likely follicular cysts in the left ovary, the larger measuring 2.0 x 2.0 x 1.6 cm with a slightly crenated appearance. The patient expressed understanding and agreement with the plan of care. All of her questions and concerns were addressed to the best of my ability. This note is constructed using voice recognition software. While every effort has been made to ensure accuracy, display specialist errors may have been included. Coding Level of Care Code Tele Est Pt Level 3 (70580) Diagnoses Encounter to discuss test results Z71.2
== END 2024-10-28 09:05 | disposition home or self-care (01) ==
LOC: HO.HWS 12:39
PROVIDERS: Visit Provider Advanced Practice Midwife
DX: Z71.2 Person consulting for explanation of examination or test findings (principal)
CPT/HCPCS: 99213

== ENCOUNTER 2024-11-12 08:41 | Outpatient (AMB) | payer OTHER, SELFPAY ==
--- NOTE | 2024-11-12 09:05 | A.SPINEOV_ITS ---
Intake Visit Reasons: low back pain Intake Note: Ms. aMtos is here today c/o low back pain. MRI done @ [facility] – [place]. Allergies bismuth subsalicylate (From Pepto-Bismol) Allergy (Intermediate, Verified 06/15/24 13:39) Rash codeine Allergy (Intermediate, Verified 06/15/24 13:39) hives, flushing Sulfa (Sulfonamide Antibiotics) (Sulfa(Sulfonamide Antibiotics)) Allergy (Unknown, Verified 06/15/24 13:39) HIVES TO SULFA DRUGS droperidol (From Inapsine) Adverse Reaction (Unknown, Verified 06/15/24 13:39) AGITATION Assessment & Plan Assessment & Plan (1) DDD (degenerative disc disease), lumbar: Code(s): M51.369 - Other intervertebral disc degeneration, lumbar region without mention of lumbar back pain or lower extremity pain Category: Medical Qualifiers: Disc-related pain type: discogenic back pain only Qualified Code(s): M51.360 - Other intervertebral disc degeneration, lumbar region with discogenic back pain only Plan Dear colleague Thank you for referring Roxie Matos to the office today with a chief complaint of chronic low back pain. HPI: This 44-year-old female developed back problems in her 20s. It started with a right sciatica radiating to the outside of the lower leg. She had injections done and over time the sciatica resolved. However she continued to complain of progressive low back pain. The pain is across the lumbar spine. She has exacerbations now every 6 months where she has terrible pain up to 10/10 that lasts for days or up to 2 weeks. She will be incapacitated. She treated with Tylenol and ibuprofen. Extension of the lumbar spine is more painful than flexion. She no longer has the sciatica. Sometimes she has minor radiation down the outside of her right thigh. She has tried multiple courses of physical therapy in the past which gives her tremendous pain. She wants to discuss the cause of her back pain and to see if there is any treatments to relieve it. PMH: Noncontributory Medications: None Allergies: NKDA Social history: Nonsmoker. 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 Physical Exam: Pleasant female. She is able to move without restrictions. No neurological deficits for motor sensation or reflexes. Straight leg raise is n egative. Radiological Studies: MRI done at [facility] on 10/20/2024 shows afveakxn-cy-pdbldx lumbar degenerative disc disease L4-5 and L5-S1 with a disc bulge at both levels compressing the right L5 and S1 nerve roots. The remainder of the lumbar spine is in an excellent condition. Impression/Plan: This 44-year-old female is suffering from chronic low back pain with exacerbations due to lumbar degenerative disc disease L4-5 and L5-S1. He states that activity improves the symptoms and she wants to return to the gym. I have no objections to this. I told the patient that there is no magic pill or treatment to relieve her back pain. It is trial and error to find a possible solution for the back pain. I do think the pain is associated with the lumbar degenerative disc disease L4-5 and L5-S1. However, she is still functional and therefore I do not think it is a good idea to perform an L4-S1 lumbar fusion in his stage. I advised her to return to my office if a radicul opathy develops or if the pain comes to such a level without improvement that she becomes a candidate for an L4-S1 fusion. I did offer a medial branch block to see if that would relieve her back pain with a possible denervation of the facet joints. She will think about this option and call my office if he wants to proceed. Thank you for allowing me to participate in your patients care. total time spent was 50 minutes in counseling ,coordination of plan, personal review of imaging, surgical decision making and subsequent plan Redd Yates MD, PhD Spine Fellowship Trained Neurosurgeon Director, [facility] Coding Level of Care Code New Pt Level 4 (29819) Diagnoses Degeneration of intervertebral disc of lumbar region with discogenic back pain M51.360 Disc-related pain type: discogenic back pain only
== END 2024-11-12 09:27 | disposition home or self-care (01) ==
LOC: HO.HNS 08:42
PROVIDERS: Visit Provider Neurological Surgery
DX: M51.360 Other intervertebral disc degeneration, lumbar region with discogenic back pain only (principal)
CPT/HCPCS: 99204

== ENCOUNTER 2024-12-17 08:49 | Outpatient (AMB) | payer OTHER, SELFPAY ==
--- NOTE | 2024-12-17 09:03 | MHC.OFFVIS ---
Vital Signs 12/17/24 09:19 Height 5 ft 4 in Weight 181 lb BMI 31.1 BP 117/73 Blood Pressure Location Lt brachial Position Sitting Pulse 63 Intake Visit Reasons: 6 month breast exam Intake Note: Patient is seen in office for 6 month follow up, breast exam. Pt c/o: denies any cocerns regarding the breast Bingo Cashier Required: No Accompanied by: Self / Same As Patient Allergies bismuth subsalicylate (From Pepto-Bismol) Allergy (Intermediate, Verified 12/17/24 09:19) Rash codeine Allergy (Intermediate, Verified 12/17/24 09:19) hives, flushing Sulfa (Sulfonamide Antibiotics) (Sulfa(Sulfonamide Antibiotics)) Allergy (Unknown, Verified 12/17/24 09:19) HIVES TO SULFA DRUGS droperidol (From Inapsine) Adverse Reaction (Unknown, Verified 12/17/24 09:19) AGITATION Medication List - Last Reconciled 12/17/24 by Silvano Overton MD ciprofloxacin HCl (Cipro) 500 mg PO BID cyclobenzaprine 10 mg PO BEDTIME PRN jukybdcbsxoa-Ep-keya-minerals tabs PO pen needle, diabetic (BD Ultra-Fine Sherry Pen Needle) once weekly HPI Comments Details: 44-year-old female patient returning for a routine high risk breast examination. She has a family history of BRCA2 mutation in her father. Her father was diagnosed with metastatic prostate cancer and subsequent underwent radiation therapy to the spine. He also has a history of metastatic melanoma. Paternal grandmother was diagnosed with breast cancer the age of 65 and maternal grandmother was treated for lung cancer. Patient underwent genetic testing which was negative for BRCA mutation however 2 variants of unknown significance were identified. Her Tyrer-zick remaining lifetime risk of breast cancer was calculated at 34.8% placing her high risk for breast cancer. She was started on the high risk protocol including twice yearly clinical breast examinations, yearly mammogram alternating in 6 months with yearly breast MRIs. She underwent breast MRI on 03/08/2024 which revealed no MR evidence of malignancy (BI-RADS 2 bilaterally). Her most recent mammogram dated 01/08/2024 revealed no mammographic evidence of malignancy (BI-RADS 2). She is scheduled for her annual mammogram on 01/13/2025. She feels well and denies any ongoing breast symptoms at this time. [facility] Medical History Hemorrhagic cyst of ovary Unspecified dyspareunia Dysmenorrhea Heavy menstrual bleeding BRCA negative Surgical History History of loop electrical excision procedure (LEEP) History of tonsillectomy Family History Father BRCA gene mutation positive in male Prostate cancer Melanoma Substance abuse Mother TTP (thrombotic thrombocytopenic purpura) Stroke Mental health disorder Paternal Grandmother Breast cancer Maternal Uncle Lung cancer Social History Housing: House Alcohol intake: current Alcohol intake frequency: a few times a month Patient Tobacco Use Status: Never used Tobacco e-Cigarette/Vaping Use: Never Used Current occupational status: employed Current occupation: [employer]/ left hand dominant Sexual orientation: Straight/Heterosexual Gender identity: Female Cognitive needs: No Hearing needs: No Vision needs: Yes Female Reproductive History Menstrual Age of Menarche: 11 Review of Systems Const All systems reviewed & are unremarkable except as noted in HPI and below Physical Exam Const General: no acute distress and well developed Nutritional Appearance: well nourished Orientation/consciousness: patient oriented x3 Limitations: no limitations HEENT Head: Yes normocephalic and Yes atraumatic Eyes Sclerae: sclerae normal EOM: EOMs intact bilaterally Neck Neck: Yes no lymphadenopathy Chest Other: Left breast: No skin change, no nipple retraction, no nipple discharge, no palpable mass, no enlarged lymph nodes. Right breast: No skin change, no nipple retraction, no nipple discharge, no palpable mass, no enlarged lymph nodes Resp Effort & Inspection: normal respiratory effort and no cough Skin Other: Warm and dry, no rash General skin exam: no rashes or lesions noted Neuro General: patient oriented x3 Extrem General: Yes no clubbing, cyanosis or edema Assessment & Plan Assessment & Plan (1) Family history of BRCA gene mutation: Code(s): Z84.81 - Family history of carrier of genetic disease Category: Medical (2) At high risk for breast cancer: Code(s): Z91.89 - Other specified personal risk factors, not elsewhere classified Category: Medical Plan 44-year-old female patient with strong family history of breast cancer found to have an elevated Tyrer-Cuzick risk a 34.8% lifetime remaining risk of breast cancer. She underwent an ultrasound-guided core biopsy which revealed benign breast tissue. Breast MRI of 03/08/2024 revealed no MR evidence of malignancy in either breast (BI-RADS 2). Mammogram dated 01/08/2024 revealed no mammographic evidence of malignancy (BI-RADS 2). Examination today revealed no suspicious findings in either breast. She should follow up in 6 months for routine breast examination, sooner p.r.n.. She is due for a mammogram on 01/13/2025 we will be due for her breast MRI in March 2025. Coding Level of Care Code Est Pt Level 3 (40481) Complex EM visit Add On G2211 Diagnoses Family history of BRCA gene mutation Z84.81 At high risk for breast cancer Z91.89
[2024-12-17 09:19] VITALS: BP 117/73; PULSE 63; BMI 31.1
== END 2024-12-17 09:21 | disposition home or self-care (01) ==
LOC: HO.HGS 08:50
PROVIDERS: PCP Internal Medicine; Visit Provider Surgery
DX: Z84.81 Family history of carrier of genetic disease (principal); Z91.89 Other specified personal risk factors, not elsewhere classified
CPT/HCPCS: 99213

== ENCOUNTER 2024-12-30 10:24 | Outpatient (REF) | payer OTHER, SELFPAY ==
[2024-12-31 02:11] LABS: Bacterial Vaginosis PCR NEGATIVE (Negative); Candida Group PCR NOT DETECTED (Not Detect); Candida glab krusei PCR NOT DETECTED (Not Detect); Trichomonas vaginalis PCR NOT DETECTED (Not Detect)
[2024-12-31 02:43] LABS: CT PCR NOT DETECTED (Not Detect.); NG PCR NOT DETECTED (Not Detect.)
== END 2024-12-30 10:25 | disposition home or self-care (01) ==
LOC: HO.LNP 10:24
PROVIDERS: PCP Internal Medicine; Visit Provider Advanced Practice Midwife
DX: Z01.419 Encounter for gynecological examination (general) (routine) without abnormal findings (principal); N93.9 Abnormal uterine and vaginal bleeding, unspecified; Z20.2 Contact with and (suspected) exposure to infections with a predominantly sexual mode of transmission
CPT/HCPCS: 81515; 87491; 87591; 87626; 88175

== ENCOUNTER 2024-12-30 10:24 | Outpatient (AMB) | payer OTHER, SELFPAY ==
[2024-12-30 10:35] VITALS: BP 112/64
--- NOTE | 2024-12-30 10:35 | MHC.OFFVIS ---
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 Periods off and heavy Nov 22 and then Dec 10. Assistant Manager Bilingual Required: No Information Interpreted: non-clinical & clinical Outdoor Education Teacher: Outdoor Education Teacher Present Accompanied by: Self / Same As Patient Allergies bismuth subsalicylate (From Pepto-Bismol) Allergy (Intermediate, Verified 12/30/24 10:40) Rash codeine Allergy (Intermediate, Verified 12/30/24 10:40) hives, flushing Sulfa (Sulfonamide Antibiotics) (Sulfa(Sulfonamide Antibiotics)) Allergy (Unknown, Verified 12/30/24 10:40) HIVES TO SULFA DRUGS droperidol (From Inapsine) Adverse Reaction (Unknown, Verified 12/30/24 10:40) AGITATION Medication List - Last Reconciled 12/30/24 by Courtney Tan, BAKARI cyclobenzaprine 10 mg PO BEDTIME PRN oevrvtdfbttf-Aw-gspg-minerals tabs PO pen needle, diabetic (BD Ultra-Fine Sherry Pen Needle) once weekly Is last menstrual period known: Yes Last menstrual period: 12/10/24 Do you need a note to return to daycare/school/sports/work: No HPI Comments Details: Patient is a premenopausal woman presenting for annual examination. Cupola Man concerns: recent closely spaced cycle, bled 11/22 x 6-7d, last LMP 9/5 x 6-7d. Currently is sexually active with who had a vasectomy. She denies vaginal itching or irritation. STI screening offered; she accepts. She tries to eat healthy and stays active with exercise. Family history of breast cancer father, patient is BRCA negative. Last pap smear 2021, negative. History of LEEP in her 20s. Mammogram: 2023, followed by Dr. Overton. [facility] Medical History (Updated 12/30/24 @ 18:36 by Eboni Dutta CNM) Fibroid Follicular cyst of ovary HX: contraception Hemorrhagic cyst of ovary Unspecified dyspareunia Dysmenorrhea Heavy menstrual bleeding BRCA negative Surgical History History of loop electrical excision procedure (LEEP) History of tonsillectomy Family History Father BRCA gene mutation positive in male Prostate cancer Melanoma Substance abuse Mother TTP (thrombotic thrombocytopenic purpura) Stroke Mental health disorder Paternal Grandmother Breast cancer Maternal Uncle Lung cancer Social History Housing: House Alcohol intake: current Alcohol intake frequency: a few times a month Patient Tobacco Use Status: Never used Tobacco e-Cigarette/Vaping Use: Never Used Current occupational status: employed Current occupation: [employer]/ left hand dominant Sexual orientation: Straight/Heterosexual Gender identity: Female Cognitive needs: No Hearing needs: No Vision needs: Yes Female Reproductive History Menstrual Age of Menarche: 11 Date of last menstrual period: 12/10/24 control method: other ( has vasectomy) Total pregnancies: 1 Number of Living Children: 1 Date of last pap smear: 04/19/21 History of abnormal pap smear: Yes Date of Mammogram: 01/08/24 Review of Systems Const All systems reviewed & are unremarkable except as noted in HPI and below Reports as per HPI Eyes Reports no additional complaints ENT Reports no additional complaints Card Reports no additional complaints Resp Reports no additional complaints GI Reports as per HPI and Reports no additional complaints Reports as per HPI Musc Reports no additional complaints Skin/Breast Reports as per HPI Neuro Reports no additional complaints Psych Reports no additional complaints Endo Reports no additional complaints Kaz/Lymph Reports no additional complaints Aller/Immun Reports no additional complaints Physical Exam Vital Signs: Last Vital Signs BP 112/64 12/30/24 10:35 BMI result Body Mass Index 0.3 Const General: cooperative, healthy appearing, no acute distress, well developed and alert Orientation/consciousness: patient oriented x3 HEENT Head: Yes normal to inspection Eyes General: appearance normal, both eyes and all related structures Neck Neck: Yes normal visual inspection Thyroid: Thyroid normal Chest Chest palpation & inspection: normal inspection of the chest and other (no puckering, dimpling, peau de orange, retraction, discharge, masses) Breast/axilla inspection: normal inspection of the breasts Breast/axilla palpation: normal palpation of the breasts Resp Effort & Inspection: normal respiratory effort GI Inspection: Yes normal to inspection Palpation (GI): Soft to palpation Rectal Exam - Female: deferred General: Yes bladder normal to palpation External Female Exam: normal external appearance and normal appearance of the urethra Speculum Exam - Vagina: normal appearance of the vagina, normal palpation and normal vaginal discharge Speculum Exam - Cervix: normal appearance of the cervix, normal palpation and Other cervical findings present (Post LEEP appearance bled with Pap) Bimanual exam- vagina & uterus: normal bimanual exam, normal palpation, uterine size normal, bladder normal to palpation, normal palpation and non-tender Bimanual Exam- Adnexa, other: no masses Skin General skin exam: no rashes or lesions noted Rashes: no rashes Neuro General: patient oriented x3 Cognition (Neuro): normal cognition Extrem General: Yes normal to inspection Psych Attitude: cooperative Thought process: Normal thought process present Assessment & Plan Assessment & Plan (1) Encounter for well woman exam with routine gynecological exam: Code(s): Z01.419 - Encounter for gynecological examination (general) (routine) without abnormal findings Category: Medical Plan: Discussed: Current recommendations for pap smears per ASCCP guidelines. Breast awareness and periodic breast exams. Mammogram yearly. Maintain a healthy lifestyle including a well balanced diet and routine exercise. Perimenopausal changes in concerns, recommended menopausal.org, another perimenopausal experts for review of pod cast, book recommendations and other sources of information to help support healthy diet, lifestyle including exercise. Monitor menstrual cycles, report any unscheduled bleeding, bleeding episodes <24 days apart or heavy/prolonged menstrual bleeding. Call the office for a follow up for any concerns. Patient verbalizes understanding and agrees to the plan of care. She was given opportunity to ask questions and all questions were answered to the best of my ability. RTO in one year for annual building construction estimator examination. This note is constructed using voice recognition software. While every effort has been made to ensure accuracy, automatic beading lathe operator errors may have been included. (2) Abnormal uterine bleeding (AUB): Code(s): N93.9 - Abnormal uterine and vaginal bleeding, unspecified Plan Discuss workup for AUB to include cervical cultures-, lab work CBC and TSH-primary care as ordered and she is due to have soon prior to her visit next month. Monitor cycles if a repeat episode occurs I recommend she notify the office to have an endometrial biopsy to rule out any abnormal pathology from the uterine lining including atypia, hyperplasia, precancer or cancer. Consider cycle control options such as a Mirena IUD 1st option for treatment for AUB, other options are available, follow up pending lab work. The patient expressed understanding and agreement with the plan of care. All of her questions and concerns were addressed to the best of my ability. Orders: Orders HPV High risk Today N93.9 - Abnormal uterine and vaginal bleeding, unspecified Pap Smear Today N93.9 - Abnormal uterine and vaginal bleeding, unspecified CT NG by PCR Vag/Cerv Today N93.9 - Abnormal uterine and vaginal bleeding, unspecified Bacterial Vaginosis Panel Today N93.9 - Abnormal uterine and vaginal bleeding, unspecified Coding Level of Care Code Est Pt Prev Care 40-64y(45510) Diagnoses Encounter for well woman exam with routine gynecological exam Z01.419 Abnormal uterine bleeding (AUB) N93.9
== END 2024-12-30 11:26 | disposition home or self-care (01) ==
LOC: HO.HWS 10:24
PROVIDERS: PCP Internal Medicine; Visit Provider Advanced Practice Midwife
DX: Z01.419 Encounter for gynecological examination (general) (routine) without abnormal findings (principal); N93.9 Abnormal uterine and vaginal bleeding, unspecified
CPT/HCPCS: 99396; 99459

== ENCOUNTER 2025-01-13 15:41 | Outpatient (REF) | payer OTHER, SELFPAY | END 2025-01-13 15:42 | disposition home or self-care (01) | LOC: HO.MAMMO 15:41 | PROVIDERS: PCP Internal Medicine; Visit Provider Surgery | DX: Z12.31 Encounter for screening mammogram for malignant neoplasm of breast (principal) | CPT/HCPCS: 77063; 77067 ==

== ENCOUNTER → 2025-01-13 16:00 | Outpatient (BNV) | payer OTHER, SELFPAY | PROVIDERS: PCP Internal Medicine; Visit Provider Radiology Body Imaging | DX: Z12.31 Encounter for screening mammogram for malignant neoplasm of breast (principal) | CPT/HCPCS: 77063; 77067 ==

== ENCOUNTER 2025-01-22 07:00 | Outpatient (REF) | payer OTHER, SELFPAY ==
[2025-01-22 07:22] LABS: MANUAL DIFF FLAG NO
[2025-01-22 07:59] LABS: Hematocrit 38.8 % (37.0-47.0); Hemoglobin 12.9 g/dl (12.0-16.0); Imm Gran Abs Auto 0.02 X10*3/uL (0.00-0.03); Imm Gran Pct Auto 0.5 % (0.0-0.4); Lymphocytes Absolute Auto 1.8 X10*3/uL (1.2-4.9); Mean Corpuscular HGB Conc 33.2 g/dl (31.0-35.0); Mean Corpuscular Hemoglobin 29.4 pg (27.0-33.0); Mean Corpuscular Volume 88.4 fL (80.0-98.0); NRBC Abs Auto 0.000 X10*3/uL (0.0-0.012); NRBC Pct Auto 0.0 /100WBC (0.0-0.2); Platelet Count 216 X10*3/uL (160-400); Red Blood Count 4.39 X10*6/uL (4.20-5.50); White Blood Count 4.4 X10*3/uL (4.8-10.8)
[2025-01-22 08:18] LABS: Appearance Urine Clear; Glucose Urine UA Negative (Negative); PH 6.5 (5.0-9.0); Specific Gravity - Urine 1.020 (1.005-1.025); UMIC TRIGGER UACC YES
[2025-01-22 08:23] LABS: UACC Culture Trigger YES
[2025-01-22 08:43] LABS: Alanine Aminotransferase 22 U/L (0-31); Albumin Level 4.4 g/dL (3.5-5.0); Alkaline Phosphatase 62 U/L (39-117); Anion Gap 11 (12-20); Aspartate Amino Transferase 19 U/L (5-31); Blood Urea Nitrogen 15 mg/dL (9-16); Calcium 9.1 mg/dL (8.4-10.2); Carbon Dioxide 25 mmol/L (22-29); Chloride 108 mmol/L (96-108); Cholesterol 171 mg/dL (<200); Estimated Glomerular Filt Rate > 60; HDL Cholesterol 70 mg/dL (>40); Potassium 4.4 mmol/L (3.3-5.1); Sodium 140 mmol/L (135-145); Total Protein 6.8 g/dL (6.5-8.0); Triglycerides 49 mg/dL (<150)
[2025-01-24 23:09] LABS: Lyme Abs Screen <0.90 index
== END 2025-01-22 07:01 | disposition home or self-care (01) ==
LOC: HO.LAB 07:00
PROVIDERS: PCP Internal Medicine; Visit Provider Internal Medicine
DX: Z01.84 Encounter for antibody response examination (principal); Z13.0 Encounter for screening for diseases of the blood and blood-forming organs and certain disorders involving the immune mechanism; Z13.220 Encounter for screening for lipoid disorders; Z13.228 Encounter for screening for other metabolic disorders; Z13.6 Encounter for screening for cardiovascular disorders; R53.83 Other fatigue
CPT/HCPCS: 36415; 80053; 80061; 81001; 81003; 84443; 85025; 86617; 86618; 87086; 87088; 87186

== ENCOUNTER 2025-01-31 15:52 | Outpatient (AMB) | payer OTHER, SELFPAY ==
--- NOTE | 2025-01-31 15:55 | MHC.PC.OV ---
Vital Signs 01/31/25 15:59 Height 5 ft 4 in Weight 184 lb BMI 31.6 BP 126/72 Blood Pressure Location Rt brachial Position Sitting Respiration 18 Pulse 76 Pulse Source Pulse Oximeter Temp 98.4 F Temp Source Oral Pulse Oximetry (%) 97 Oxygen Delivery Method Room Air Intake Visit Reasons: cpe Intake Note: cpe Long Term Acute Care Registered Nurse Required: No Allergies bismuth subsalicylate (From Pepto-Bismol) Allergy (Intermediate, Verified 01/31/25 15:58) Rash codeine Allergy (Intermediate, Verified 01/31/25 15:58) hives, flushing Sulfa (Sulfonamide Antibiotics) (Sulfa(Sulfonamide Antibiotics)) Allergy (Unknown, Verified 01/31/25 15:58) HIVES TO SULFA DRUGS droperidol (From Inapsine) Adverse Reaction (Unknown, Verified 01/31/25 15:58) AGITATION Tobacco use date assessed: 01/31/25 Dental Screening Dental Screen Date: 01/31/25 Did you have a dental visit in the last 12 months?: Yes Did you have a dental problem in the last 6 months where you did not have access to dental care?: No Was dental information given to patient?: Patient has dentist HPI HPI Comments History of Present Illness Details 45 year old female with a past medical history of depression, low back pain, elevated breast cancer risk presenting for CPE Elevated breast cancer risk: Follows with breast center. Mammo UTD. MRIs MSK: Frequent episodes of flares in low back pain. Chronic baseline low back pain. Flares multiple times annually. She tweaks it doing any menial task, bending over, getting up. Stopping her from exercising as she would like. She is scare to set it off. Once it flares she can hardly move. It starts and then spasms all along the mid and lower back. She had MRI, saw NS. Said could fuse but not overwhelming chance of significant improvement. She has received injections in the past without much benefit. Might consider again Recent UTI. 2 in the past year which is new for her. Completed abx therapy Upcoming endometrial biopsy with [facility] Just received flu shot ROS see HPI PHYSICAL EXAM: GENERAL: Alert and oriented x 3. NAD EYES: EOMI. Anicteric. HENT: Moist mucous membranes. No scleral icterus. No cervical lymphadenopathy. LUNGS: Clear to auscultation bilaterally. CARDIOVASCULAR: Regular rate and rhythm. No murmur. No JVD. ABDOMEN: Soft, non-tender +bs EXTREMITIES: No edema. Non-tender. SKIN: No rashes or lesions. Warm. NEUROLOGIC: No focal neurological deficits. CN II-XII grossly intact PSYCHIATRIC: Cooperative. Appropriate mood and affect [facility] Medical History (Updated 12/30/24 @ 18:36 by Eboni Dutta CNM) Fibroid Follicular cyst of ovary HX: contraception Hemorrhagic cyst of ovary Unspecified dyspareunia Dysmenorrhea Heavy menstrual bleeding BRCA negative Surgical History History of loop electrical excision procedure (LEEP) History of tonsillectomy Family History Father BRCA gene mutation positive in male Prostate cancer Melanoma Substance abuse Mother TTP (thrombotic thrombocytopenic purpura) Stroke Mental health disorder Paternal Grandmother Breast cancer Maternal Uncle Lung cancer Social History (Updated 01/31/25 @ 15:59 by Oumar Floyd MA) Housing: House Alcohol intake: current Alcohol intake frequency: a few times a month Patient Tobacco Use Status: Never used Tobacco e-Cigarette/Vaping Use: Never Used service: No Current occupational status: employed Current occupation: [employer]/ left hand dominant Sexual orientation: Straight/Heterosexual Gender identity: Female Cognitive needs: No Hearing needs: No Vision needs: Yes Female Reproductive History Menstrual Age of Menarche: 11 Questionnaire PHQ-9 Over the last 2 weeks, how often have you been bothered by any of the following problems? 1. Little interest or pleasure in doing things: not at all 2. Feeling down, depressed, or hopeless: not at all 3. Trouble falling or staying asleep, or sleeping too much: not at all 4. Feeling tired or having little energy: several days 5. Poor appetite or overeating: several days 6. Feeling bad about yourself - or that you are a failure or have let yourself or your family down: not at all 7. Trouble concentrating on things, such as reading the newspaper or watching television: not at all 8. Moving or speaking so slowly that other people could have noticed. Or the opposite - being so fidgety or restless that you have been moving around a lot more than usual: not at all 9. Thoughts that you would be better off or of hurting yourself in some way: not at all Total score: 2 Depression Screening Interpretation: Negative Depression Screening Done: Yes 77684 - PHQ-9 Billing: Yes Source: Developed by Drs. Leoncio Tucker, Meenu Wellington, Herberth Mcgill and colleagues, with an educational maya from [employer]. Thrive Questionnaire Date Thrive assessed: 01/23/24 I am a: Patient What is your living situation today?: I have a steady place to live Within the past 12 months, did the food you bought not last and you didn't have the money to get more?: Never true Within the past 12 months, did you worry whether your food would run out before you got money to buy more?: Never true Do you have trouble paying for medicines?: No Do you have trouble getting transportation to medical appointments?: No Do you have trouble paying your heating and electricity bill?: No Do you have trouble taking care of your child, family member or friend?: No Do you have trouble with day-to-day activities such as bathing, preparing meals, shopping, managing finances, etc.?: No Are you currently unemployed and looking for a job?: No Are you interested in more education?: No Please select the resources that you would like help with: None Currently or been in a relationship where the following occur: No concerns reported THRIVE Score: 0 AUDIT C Alcohol Use Questionnaire (AUDIT-C) 1. How often do you have a drink containing alcohol?: 2-4 times a month 2. How many drinks containing alcohol do you have on a typical day when you are drinking?: 3 or 4 3. How often do you have six or more drinks on one occasion?: Less than monthly Total Score: 4 BARBARA-7 AMB Questionnaire BARBARA-7 Date BARBARA - 7 assessed: 01/26/24 Feeling nervous, anxious, or on edge: 1 = Several days Not being able to stop or control worryin = Several days Worrying too much about different things: 1 = Several days Trouble relaxin = Not at all Being so restless that it is hard to sit still: 0 = Not at all Becoming easily annoyed or irritable: 1 = Several days Feeling afraid as if something awful might happen: 0 = Not at all Total BARBARA-7 score (0-4 normal; 5-9 mild; 10-14 moderate; 15-21 severe): 4 Source: Developed by Drs. Leoncio Tucker, Meenu Wellington, Herberth Mcgill and colleagues, with an educational maya from [employer]. Physical exam (Primary Care) Vital Signs: Last Vital Signs Temp 98.4 F 01/31/25 15:59 Pulse 76 01/31/25 15:59 Resp 18 01/31/25 15:59 BP 126/72 01/31/25 15:59 Pulse Ox 97 01/31/25 15:59 Oxygen Delivery Method Room Air 01/31/25 15:59 BMI result Body Mass Index 31.6 Tobacco/Smoking Status: Tobacco use Status Tobacco use date assessed 01/31/25 01/31/25 16:02 Patient Tobacco Use Status Never used Tobacco 01/31/25 15:59 e-Cigarette/Vaping Use Never Used 01/31/25 15:59 PHQ-9: PHQ-9 Score PHQ-9: Total score 2 01/31/25 16:17 Depression Screening Interpretation: Negative Thrive Assessment: Date of Thrive Assessment Date Thrive assessed 01/23/24 01/31/25 15:56 Currently or been in a relationship where the following occur: No concerns reported Coding Level of Care Code Est Pt Prev Care 40-64y(84513) Diagnoses Physical exam Z00.00 Lumbosacral radiculopathy due to degenerative joint disease of spine M47.27 At high risk for breast cancer Z91.89 Menorrhagia with regular cycle N92.0 Menorrhagia type: with regular cycle Additional Codes PHQ-9 - 54862 - PHQ-9 Billing: Yes ([id number]) Assessment & Plan Assessment & Plan (1) Physical exam: Code(s): Z00.00 - Encounter for general adult medical examination without abnormal findings (2) Lumbosacral radiculopathy due to degenerative joint disease of spine: Code(s): M47.27 - Other spondylosis with radiculopathy, lumbosacral region Category: Medical (3) At high risk for breast cancer: Code(s): Z91.89 - Other specified personal risk factors, not elsewhere classified Category: Medical (4) Heavy menstrual bleeding: Code(s): N92.0 - Excessive and frequent menstruation with regular cycle Category: Medical Qualifiers: Menorrhagia type: with regular cycle Qualified Code(s): N92.0 - Excessive and frequent menstruation with regular cycle Plan 45 year old female presenting for CPE Interval history reviewed. Preventive measures for age discussed-UTD Back pain continues to intermittently plague patient. Declines physiatry at present Labs reviewed. Orders: Orders UA w Microscopic 01/31/25 N39.0 - Urinary tract infection, site not specified Urine Culture 01/31/25 N39.0 - Urinary tract infection, site not specified
[2025-01-31 15:59] VITALS: BP 126/72; PULSE 76; RESP 18; TEMP 36.9; O2SAT 97; BMI 31.6
== END 2025-01-31 16:34 | disposition home or self-care (01) ==
LOC: HO.HMCFM 15:53
PROVIDERS: PCP Internal Medicine; Visit Provider Internal Medicine
DX: Z00.00 Encounter for general adult medical examination without abnormal findings (principal); M47.27 Other spondylosis with radiculopathy, lumbosacral region; Z91.89 Other specified personal risk factors, not elsewhere classified; N92.0 Excessive and frequent menstruation with regular cycle

== ENCOUNTER → 2025-01-31 15:52 | Outpatient (BNVA) | payer OTHER, SELFPAY | PROVIDERS: Visit Provider Internal Medicine | DX: Z00.00 Encounter for general adult medical examination without abnormal findings (principal); M47.27 Other spondylosis with radiculopathy, lumbosacral region; N92.0 Excessive and frequent menstruation with regular cycle; Z91.89 Other specified personal risk factors, not elsewhere classified; Z13.31 Encounter for screening for depression | CPT/HCPCS: 96127 ==

== ENCOUNTER 2025-02-03 14:59 | Outpatient (REF) | payer OTHER, SELFPAY | END 2025-02-03 15:00 | disposition home or self-care (01) | LOC: HO.LNP 14:59 | PROVIDERS: PCP Internal Medicine; Visit Provider Obstetrics & Gynecology | DX: R87.610 Atypical squamous cells of undetermined significance on cytologic smear of cervix (ASC-US) (principal) | CPT/HCPCS: 57454; 58110; 88305 ==

== ENCOUNTER 2025-02-03 14:59 | Outpatient (AMB) | payer OTHER, SELFPAY ==
--- NOTE | 2025-02-03 15:13 | MHC.OFFVIS ---
Intake Visit Reasons: EMB/Colpo Allergies bismuth subsalicylate (From Pepto-Bismol) Allergy (Intermediate, Verified 01/31/25 15:58) Rash codeine Allergy (Intermediate, Verified 01/31/25 15:58) hives, flushing Sulfa (Sulfonamide Antibiotics) (Sulfa(Sulfonamide Antibiotics)) Allergy (Unknown, Verified 01/31/25 15:58) HIVES TO SULFA DRUGS droperidol (From Inapsine) Adverse Reaction (Unknown, Verified 01/31/25 15:58) AGITATION HPI Comments Details: Presenting for abnormal Pap smear showing the following: General Category: Epithelial cell abnormality. Adequacy: Endocervical component present. Satisfactory for evaluation (reprocessing with acid wash procedure and second slide) Interpretation: Atypical squamous cells of undetermined significance. Atypical glanular cells of undetermined significance, favor endometrial. Abundant blood. HPV High Risk: Negative HPV Genotyping 16: Negative HPV Genotyping 18: Negative PFSH Medical History Fibroid Follicular cyst of ovary HX: contraception Hemorrhagic cyst of ovary Unspecified dyspareunia Dysmenorrhea Heavy menstrual bleeding BRCA negative Surgical History History of loop electrical excision procedure (LEEP) History of tonsillectomy Family History Father BRCA gene mutation positive in male Prostate cancer Melanoma Substance abuse Mother TTP (thrombotic thrombocytopenic purpura) Stroke Mental health disorder Paternal Grandmother Breast cancer Maternal Uncle Lung cancer Social History Housing: House Alcohol intake: current Alcohol intake frequency: a few times a month Patient Tobacco Use Status: Never used Tobacco e-Cigarette/Vaping Use: Never Used service: No Current occupational status: employed Current occupation: [employer]/ left hand dominant Sexual orientation: Straight/Heterosexual Gender identity: Female Cognitive needs: No Hearing needs: No Vision needs: Yes Female Reproductive History Menstrual Age of Menarche: 11 Office Procedures Colposcopy Colposcopy: Pre-Procedure Counseling: Before beginning the procedure, I conducted comprehensive counseling with the patient. We thoroughly discussed the procedure itself, including its details, alternatives, and all associated risks. This included but not limited to the following complications such as bleeding, infection, and injury to the vagina, bladder, and vessels, as well as the potential need for transfusion with all its associated risks. Subsequently, the patient sign the consent. Pap smear result: ASCUS/AGC HPV negative. Urine test in office = Negative Procedure: During the procedure, the following steps were performed: A speculum was inserted, and acetic acid was applied. Colposcopy was conducted, allowing visualization of the transformation zone. Acetowhite lesions were identified at the 5+ 7+ 11+ 12+ 1 o'clock position. Cervical biopsies were obtained from the 5+ 7+ 11+ 12+1 o'clock position, followed by an endocervical curettage (ECC). Vaginoscopy of the upper vagina revealed no evidence of aceto-white lesions. Hemostasis was achieved using Monsel solution, and the patient tolerated the procedure well. Post-Procedure Instructions: The patient was advised to promptly contact the office or the after hours answering service or go to the emergency room if experiencing a temperature exceeding 100.4?F, abdominal pain, nausea/vomiting, or bleeding. Additionally, the patient was instructed to abstain from vaginal intercourse and bathtub use. The patient confirmed understanding of these instructions. Discharge Instructions: The patient was instructed to schedule a follow-up appointment in 2 weeks for further evaluation and management. Please note that this note was generated using a voice recognition program, and errors may have occurred during meter maintenance person. 20196-[id number] of cervix including upper vagina with biopsy and ECC Procedure code (CPT) selection complete Endometrial Biopsy Details: The patient was counseled regarding the indication and benefits of endometrial sampling to rule out endometrial pathology including not limited to endometrial hyperplasia or endometrial cancer and others; The alternatives (Either do nothing vs. hysteroscopy D&C) & the risks were discussed with the patient including but not limited: pain, uterine perforation, bleeding, infection, possible injury to bladder, bowel, ureter, possible need for blood transfusion with all its possible risks. The patient verbalized understanding all questions answered and signed consent. Urine test done in the office was negative The patient was placed into the dorsal lithotomy position; a speculum was inserted in the vagina. Using aseptic technique for the procedure, the cervix was cleansed with Betadine. The anterior lip of the cervix was grasped with a single tooth tenaculum. The uterus was sounded to 7 cm with a 4 mm Pipelle was used. Tissues samples were obtained and placed in formalin, in a patient labeled container and sent to the pathology department. At the end of the procedure, there was minimal bleeding noted The patient tolerated the procedure well and was discharged in good condition with the following instructions: Nothing in the vagina until the bleeding stops. No sex until the bleeding stops, to call if any of the following occurs: fever (>100.4), flu-like symptoms, abdominal pain, heavy bleeding, four smelling vaginal discharge. The patient was instructed to schedule a Follow up appointment in 2 weeks to discuss pathology results of the biopsy and treatment options. This note was generated with a voice recognition program. Some errors may have been overlooked during the review of this note. Sometimes these errors may affect the content or meaning of a given sentence. 34795-Qpyfarbtlwm Biopsy Assessment & Plan Assessment & Plan (1) ASCUS of cervix with negative high risk HPV: Comment: With AGC favor endometrial Code(s): R87.610 - Atypical squamous cells of undetermined significance on cytologic smear of cervix (ASC-US) Category: Medical Plan: Discussed with the patient the result of her abnormal pap, its significance, risk of progression, persistence, and regression. the false positive/negative rate of a Pap smear as a screening test in detecting cervical /endocervical endometrial hyperplasia/cancer and the indication for a diagnostic test -colposcopy, biopsy, endocervical curettage was endometrial biopsy. The patient verbalized understanding and agreed with the plan, all questions answered. Colposcopy, biopsy /ECC/EMB done, see procedure note Orders: Orders AMB Colposcopy Today R87.610 - Atypical squamous cells of undetermined significance on cytologic smear of cervix (ASC-US) AMB Endometrial Biopsy Today R87.610 - Atypical squamous cells of undetermined significance on cytologic smear of cervix (ASC-US) Coding Level of Care Code Procedure Only Diagnoses ASCUS of cervix with negative high risk HPV R87.610 CPT Codes Colposcopy - CPT: 64356-Tbcxczqcw of cervix including upper vagina with biopsy and ECC ([id number]) Endometrial Biopsy - CPT: 54897-Rpbadzjsuan Biopsy ([id number])
== END 2025-02-03 15:37 | disposition home or self-care (01) ==
LOC: HO.HWS 15:00
PROVIDERS: PCP Internal Medicine; Visit Provider Obstetrics & Gynecology
DX: R87.610 Atypical squamous cells of undetermined significance on cytologic smear of cervix (ASC-US) (principal)
CPT/HCPCS: 57454; 58110

== ENCOUNTER 2025-02-03 15:41 | Outpatient (REF) | payer OTHER, SELFPAY | END 2025-02-03 15:42 | disposition home or self-care (01) | LOC: HO.LAB 15:41 | PROVIDERS: Visit Provider Obstetrics & Gynecology | DX: Z13.89 Encounter for screening for other disorder (principal) ==

== ENCOUNTER 2025-02-23 08:41 | Outpatient (AMB) | payer OTHER, SELFPAY ==
--- NOTE | 2025-02-23 09:13 | A.OFFVIS_ITS ---
Vital Signs 02/23/25 09:15 Height 5 ft 4 in Weight 184 lb BMI 31.6 Intake Visit Reasons: EMB/Colpo f/u Allergies bismuth subsalicylate (From Pepto-Bismol) Allergy (Intermediate, Verified 01/31/25 15:58) Rash codeine Allergy (Intermediate, Verified 01/31/25 15:58) hives, flushing Sulfa (Sulfonamide Antibiotics) (Sulfa(Sulfonamide Antibiotics)) Allergy (Unknown, Verified 01/31/25 15:58) HIVES TO SULFA DRUGS droperidol (From Inapsine) Adverse Reaction (Unknown, Verified 01/31/25 15:58) AGITATION HPI Comments Details: Presenting post colpo/ECC/EMB for follow-up. The patient is doing well with no complaints. Pap smear showed the following: General Category: Epithelial cell abnormality. Adequacy: Endocervical component present. Satisfactory for evaluation (reprocessing with acid wash procedure and second slide) Interpretation: Atypical squamous cells of undetermined significance. Atypical glanular cells of undetermined significance, favor endometrial. Abundant blood. HPV High Risk: Negative HPV Genotyping 16: Negative HPV Genotyping 18: Negative The pathology showed the following: A. Cervix, 1 o'clock, biopsy: - Squamous mucosa within normal limits. - Strips of endocervical epithelium within normal limits; mucoinflammatory material. B. Cervix, 4 o'clock, biopsy: Inflamed cervical transformation zone mucosa with reactive changes. C. Cervix, 7 o'clock, biopsy: Inflamed endocervical mucosa with reactive changes. D. Cervix, 11 o'clock, biopsy: Inflamed endocervical mucosa with reactive mejia es. E. Cervix, 12 o'clock, biopsy: Inflamed cervical transformation zone mucosa with reactive changes. F. Endocervix, curettage: Few superficial fragments of inflamed endocervical and squamous epithelium with reactive changes. G. Endometrium, biopsy: Secretory endometrium; no atypia or hyperplasia identified. COMMENT: The findings are concordant with the patient's recent Pap/cytology specimen ([id number]; ASCUS and JATIN with negative HPV) - slide reviewed The patient has been having irregular menstrual cycles over the last year The following workup was done.: H&H= within normal TSH, GC and chlamydia were negative. 01/29 Mammogram was BI-RADS 2. 10/29 Pelvic ultrasound showed the following: IMPRESSION: 1. There are 3 essentially stable small uterine fibroids as detailed. 2. Normal uniform endometrium at 8 mm thickness. 3. There are are 2 minimally complex likely follicular cysts in the left ovary, the larger measuring 2.0 x 2.0 x 1.6 cm with a slightly crenated appearance. [facility] Medical History Fibroid Follicular cyst of ovary HX: contraception Hemorrhagic cyst of ovary Unspecified dyspareunia Dysmenorrhea Heavy menstrual bleeding BRCA negative Surgical History History of loop electrical excision procedure (LEEP) History of tonsillectomy Family History Father BRCA gene mutation positive in male Prostate cancer Melanoma Substance abuse Mother TTP (thrombotic thrombocytopenic purpura) Stroke Mental health disorder Paternal Grandmother Breast cancer Maternal Uncle Lung cancer Social History Housing: House Alcohol intake: current Alcohol intake frequency: a few times a month Patient Tobacco Use Status: Never used Tobacco e-Cigarette/Vaping Use: Never Used service: No Current occupational status: employed Current occupation: [employer]/ left hand dominant Sexual orientation: Straight/Heterosexual Gender identity: Female Cognitive needs: No Hearing needs: No Vision needs: Yes Female Reproductive History Menstrual Age of Menarche: 11 Review of Systems Const All systems reviewed & are unremarkable except as noted in HPI and below Reports as per HPI and Reports no additional complaints GI Reports no additional complaints Reports no additional complaints Assessment & Plan Assessment & Plan (1) ASCUS of cervix with negative high risk HPV: Comment: With AGC favor endometrial Code(s): R87.610 - Atypical squamous cells of undetermined significance on cytologic smear of cervix (ASC-US) Category: Medical Plan: Discussed with the patient the results the pathology cervical biopsies, ECC and endometrial biopsy with no evidence of dysplasia , hyperplasia or malignancy. Discussed with the patient the ASCCP guidelines for management of colposcopy results for AGC found on cytology since there is no evidence of KAVITA 2+, AIS or cancer, recommendation is schedule Co testing in a year and 2 years afterwards, if both are negative Co testing in 3 years later, any abnormality will proceed with colposcopy. All questions answered, the patient verbalized understanding (2) Complex ovarian cyst: Code(s): N83.299 - Other ovarian cyst, unspecified side Category: Medical Plan: Since ultrasound was done in 10/29, repeat ultrasound was ordered. If complex ovarian cyst persistent will treat her accordingly (3) Uterine myoma: Code(s): D25.9 - Leiomyoma of uterus, unspecified Category: Medical Plan: Discussed with the patient the findings on pelvic ultrasound & the risk of myosarcoma; in addition reviewed with the patient that malignancy and pre malignancy cannot be ruled out without hysterectomy for pathological evaluation ; furthermore, explained to the patient the limitation of pelvic ultrasound and endometrial biopsy in the setting. Discussed with the patient the typical symptoms that are caused by myomas including but not limited to pelvic pain, pressure symptoms, abnormal uterine bleeding. In addition discussed with the patient options of treatment for myomas including: Serial ultrasounds periodically to follow-up on the size of the myoma while targeting the treatment against fibroids related symptoms ( control pills, Mirena IUD, progesterone treatment, with an increase in the risk of breast cancer with long-term use, GnRH agonist/antagonist, uterine artery embolization or endometrial ablation) versus surgical treatment including hysterectomy. All pros and cons, risks and benefits of all options were discussed with the patient. After further discussion, the patient decided to proceed with expectant management. Will repeat pelvic ultrasound periodically. (4) Abnormal uterine bleeding (AUB): Code(s): N93.9 - Abnormal uterine and vaginal bleeding, unspecified Category: Medical Plan: Discussed with the patient the results of the work up done and options of treatment including Lysteda, BCP's, Mirena IUD ( both increase the risk of breast cancer) endometrial ablation and hysterectomy. All pros, cons, risks and benefits if each option was discussed with the patient and the patient decided to proceed with expectant management for the time being. All questions answered the patient verbalized understanding. Orders: Orders US pelvic and transvaginal Today N83.299 - Other ovarian cyst, unspecified side Coding Level of Care Code Est Pt Level 3 (42996) Diagnoses ASCUS of cervix with negative high risk HPV R87.610 Complex ovarian cyst N83.299 Uterine myoma D25.9 Abnormal uterine bleeding (AUB) N93.9
[2025-02-23 09:15] VITALS: BMI 31.6
== END 2025-02-23 09:35 | disposition home or self-care (01) ==
LOC: HO.HWS 08:41
PROVIDERS: PCP Internal Medicine; Visit Provider Obstetrics & Gynecology
DX: R87.610 Atypical squamous cells of undetermined significance on cytologic smear of cervix (ASC-US) (principal); N83.299 Other ovarian cyst, unspecified side; D25.9 Leiomyoma of uterus, unspecified; N93.9 Abnormal uterine and vaginal bleeding, unspecified
CPT/HCPCS: 99213